=== PATIENT | female | born 1955 | race Caucasian/White ===

== ENCOUNTER 2018-08-06 09:22 | Inpatient (IN) | payer OTHER ==
--- OUTSIDE RECORDS SUMMARY | 2018-08-06 10:27 | XMS REPORT | Continuity of Care Document ---
:1955 External Reference #:[id number] Author Name Mann Covarrubias Care Team Providers Name Role Phone Shay Mohan MD Primary Care Physician Unavailable Payers Type Date Identification Numbers Payment Provider Subscriber Policy Number: [id number] Alex Multani Group Number: [id number] [address] PayID: [id number] [place] [address] Expires: 2013 Policy Number: [id number] Khalif Zhoumarybel Hall Randall PayID: [id number] [address] [address] [place] [address] Advance Directives Description No Information Available Problems Date Description Provider Status Onset: 08/10/2015 Obstructive sleep apnea syndrome Leslye Abdalla DNP, RN, Active [employer] Onset: 09/14/2016 Morbid obesity Roro Lowe MD Active Onset: 09/14/2016 Hypersomnia, unspecified Roro Lowe MD Active Onset: 12/26/2016 Traumatic rupture of collateral Shay Em M.D. Active ligament of left little finger at metacarpophalangeal and interphalangeal joint, initial encounter Onset: 04/17/2017 Nondisplaced fracture of proximal Shay Em M.D. Active phalanx of left middle finger, subsequent encounter for fracture with routine healing Onset: 07/13/2017 Tibialis tendinitis Shay Em M.D. Active Onset: 07/13/2017 Sciatica Shay Em M.D. Active Family History Date Family Member(s) Problem(s) Comments General back problems General Esophagus Cancer Father due to at age 86 () Mother due to alive age 85 healthy () Siblings 5 Social History Type Date Description Comments Sex Unknown Marital Status Lives With Occupation Disabled ETOH Use Denies alcohol use Tobacco Use Start: Unknown Patient has never smoked Smoking Status Reviewed: 07/09/18 Patient has never smoked Exercise Type/Frequency Exercises sporadically Allergies, Adverse Reactions, Alerts Date Description Reaction Status Severity Comments 11/12/2012 Demerol Active 11/12/2012 Fiorinal Active 11/12/2012 Erythromycin Active 11/18/2013 Bee Sting Active 11/18/2013 Aspirin Active 12/08/2013 Shellfish-derived Products Active 12/08/2013 Latex Active Medications Medication Date Status Form Strength Qnty SIG Indications Ordering Provider Orthotics 07/20/ Active Inserts 1Pair Dx: Shay 2016 Posterior Manav, tibial M.D. tendon dysfnx Support arch, control hindfoot motion Ibuprofen 09/13/ Active Tablets 800mg by mouth Unknown 2016 three times a day as needed Levothyroxine 03/17/ Active Tablets 100mcg -W- Unknown Sodium 2014 Oxycodone-Aceta 11/17/ Active Tablets 5-325mg 50tabs 1-2 tabs Garrett minophen 2013 by mouth Young, every 4 M.D. hours for pain Tramadol HCL / Active Tablets 50mg 50tabs four times Unknown 0000 a day as needed Prevacid / Active Capsules 30mg 30caps 1 by mouth Unknown 0000 DR every day Levothyroxine / Active Tablets 88mcg t-th-sat-s Unknown Sodium 0000 un Magnesium-Oxide 10/26/ Hx Tablets 400mg 1 by mouth Unknown 2015 - every day 2015 Bactrim DS 09/23/ Hx Tablets 800-160mg 14tabs 1 po bid Dirk 2012 - for 7 days Yeny, 11/17/ M.D. 2013 Percocet 09/18/ Hx Tablets 5-325mg 90tabs 1-2 tabs Dirk 2012 - po q4-6 Yeny, 11/17/ prn pain M.D. 2013 Medications Administered in Office Medication Date Status Form Strength Qnty SIG Indications Ordering Provider Depomedrol Administered Injection Faith H. 80MG 013 Queenie Multani Depomedrol Administered Injection Dirk Yeny, 80MG 013 M.D. Depomedrol Administered Injection Quoc Yeny, 80MG 013 M.D. Depomedrol Administered Injection Faith H. 80MG 012 Queenie Multani Hyaluron Or Administered Injection Immanuel Derivative,Or 012 Akilah Ceballosoviayden,For Intra-Articul ar Inj Per Dose Hyaluron Or Administered Injection Immanuel Derivative,Or 012 Akilah Ceballos thovisc,For Intra-Articul ar Inj Per Dose Hyaluron Or Administered Injection Immanuel Derivative,Or 012 Akilah Ceballos thovisc,For Intra-Articul ar Inj Per Dose Immunizations Description No Information Available Vital Signs Date Vital Result Comment 07/09/2018 8:50am Height 66 inches 5'6" Heart Rate 64 /min BP Systolic 126 mmHg BP Diastolic 82 mmHg Body Temperature 98.3 F Pain Level 0 06/11/2018 9:31am Heart Rate 72 /min BP Systolic 122 mmHg BP Diastolic 76 mmHg Respiratory Rate 16 /min Pain Level 5 05/14/2018 10:43am Heart Rate 72 /min BP Systolic 118 mmHg BP Diastolic 78 mmHg Respiratory Rate 12 /min Body Temperature 98.9 F Pain Level 5 03/28/2018 8:13am Height 66 inches 5'6" Weight 240.00 lb Heart Rate 64 /min BP Systolic Sitting 120 mmHg BP Diastolic Sitting 86 mmHg Respiratory Rate 16 /min Pain Level 6 BMI (Body Mass Index) 38.7 kg/m2 07/13/2017 1:20pm Height 66 inches 5'6" Weight 237.00 lb Heart Rate 76 /min BP Systolic Recheck 130 mmHg BP Diastolic Recheck 84 mmHg Respiratory Rate 16 /min Body Temperature 98.0 F BMI (Body Mass Index) 38.2 kg/m2 04/17/2017 1:17pm Height 66 inches 5'6" Weight 258.00 lb Heart Rate 76 /min BP Systolic Recheck 130 mmHg BP Diastolic Recheck 86 mmHg Respiratory Rate 16 /min Body Temperature 99.3 F BMI (Body Mass Index) 41.6 kg/m2 03/06/2017 3:57pm Height 66 inches 5'6" Weight 265.00 lb Heart Rate 88 /min BP Systolic Recheck 136 mmHg BP Diastolic Recheck 86 mmHg Respiratory Rate 16 /min Body Temperature 98.6 F BMI (Body Mass Index) 42.8 kg/m2 02/13/2017 3:49pm Height 65 inches 5'5" Weight 263.00 lb Heart Rate 80 /min BP Systolic Recheck 130 mmHg BP Diastolic Recheck 86 mmHg Respiratory Rate 16 /min Body Temperature 98.6 F BMI (Body Mass Index) 43.8 kg/m2 12/26/2016 1:09pm Height 66 inches 5'6" Weight 270.00 lb Heart Rate 76 /min BP Systolic Recheck 130 mmHg BP Diastolic Recheck 84 mmHg Respiratory Rate 16 /min Body Temperature 99.0 F BMI (Body Mass Index) 43.6 kg/m2 09/14/2016 10:03am Height 66 inches 5'6" Weight 270.00 lb Heart Rate 81 /min BP Systolic Sitting 129 mmHg BP Diastolic Sitting 80 mmHg Respiratory Rate 14 /min O2 % BldC Oximetry 93 % BMI (Body Mass Index) 43.6 kg/m2 02/17/2016 1:13pm Height 65 inches 5'5" Heart Rate 72 /min BP Systolic Sitting 120 mmHg BP Diastolic Sitting 78 mmHg Respiratory Rate 12 /min O2 % BldC Oximetry 96 % 10/28/2015 1:13pm Height 65 inches 5'5" Weight 267.00 lb Heart Rate 88 /min BP Systolic 128 mmHg BP Diastolic 88 mmHg Respiratory Rate 14 /min O2 % BldC Oximetry 98 % BMI (Body Mass Index) 44.4 kg/m2 08/10/2015 1:27pm Height 65 inches 5'5" Weight 267.00 lb Heart Rate 88 /min BP Systolic 142 mmHg BP Diastolic 86 mmHg Respiratory Rate 14 /min O2 % BldC Oximetry 97 % BMI (Body Mass Index) 44.4 kg/m2 05/26/2015 10:24am Heart Rate 85 /min BP Systolic Sitting 136 mmHg BP Diastolic Sitting 84 mmHg Respiratory Rate 20 /min O2 % BldC Oximetry 98 % 03/18/2015 1:51pm Height 66 inches 5'6" Weight 276.25 lb Heart Rate 88 /min BP Systolic 124 mmHg BP Diastolic 74 mmHg Respiratory Rate 14 /min O2 % BldC Oximetry 96 % BMI (Body Mass Index) 44.6 kg/m2 Neck Circumference in inches 14.5 Results Test Date Facility Test Result H/L Range Note Urinalysis 06/25/2013 [facility] Urine Color Yellow [address] [place] [address] [phone] Urine Appearance Clear Urine Specific Holly 1.023 1.010-1.030 Urine Esterase 2+ Abnormal Negative Urine Nitrate Negative Negative Urine Urobilinogen Negative E.U./dL Negative Urine Protein Negative mg/dL Negative Urine pH 6.0 5-9 Urine Blood Negative Negative Urine Ketones Negative mg/dL Negative Urine Bilirubin Negative Negative Urine Glucose Negative mg/dL Negative Urine Microscopic 06/25/2013 [facility] Urine WBC 1+ (<[address] /hpf) [place] [address] [phone] Urine RBC 1+ (<3 /hpf) None Seen Urine Epithelial Cells 3+ Squamous /hpf None Seen Bacteria Urine 1+ None Seen Urine Culture And 06/25/2013 [facility] Urine Culture (SEE NOTE ) 1 Sensitivities [address] [place] [address] [phone] CBC No Diff 06/25/2013 [facility] White Blood 8.2 10^3/uL 4.8 -[address] DR[address] Count .8 [place] [address] [phone] Red Blood Count 4.57 10^6/uL 4.0-5.4 Hemoglobin 13.2 g/dL 12.0-16.0 Hematocrit 40 % 35-47 Mean Corpuscular Volume 88 fL 80-97 Mean Corpuscular Hemoglobin 29 pg 27-31 Mean Corpuscular HGB Conc 33 g/dL 31-36 Red Cell Distribution Width 15 % 10.5-15 Platelet Count 346 10^3/uL 150-450 Mean Platelet Volume 8 um3 7.4-10.4 Type & Screen 06/25/2013 [facility] Patient [place] [address] [phone] Antibody Screen NEGATIVE Basic Metabolic Panel 06/25/2013 [facility] Sodium 136 mmol/L 133-145 [place] [address] [phone] Potassium 4.7 mmol/L 3.5-5.0 Chloride 100 mmol/L Low 101-111 Co2 Carbon Dioxide 28.0 mmol/L 22-32 Anion Gap 8.0 mmol/L 2-11 Glucose 94 mg/dL 70-100 Blood Urea Nitrogen 15 mg/dL 6-24 Creatinine 0.70 mg/dL 0.50-1.40 BUN/Creatinine Ratio 21.4 High 8-20 Calcium 9.4 mg/dL 8.1-9.9 Egfr Non- 86.6 >60 Egfr 111.3 >60 2 Laboratory test 06/25/2013 [facility] TSH (Thyroid 2.72 0.34- 5.60 [address] Stimulating miu/[place] [address] Horm) [phone] 1 RUN DATE: 06/27/13 [facility] LAB LIVE PAGE 1 RUN TIME: 1028 [address] [facility], [place], [place], [place] [address] Specimen Inquiry Name: CECY MULTANI : [address]: Quoc Saini MD Acct: [id number] Unit: [id number] AGE: 57 Location: [facility] Re06/25/13 SEX: F Status: REG REF SPEC: [id number] NURIS: 06/25/13-1230 [facility] DR: Quoc Saini MD REQ: [id number] RECD: 06/25/13 STATUS: LESLEE CONTI DR: Shay Mohan MD _ SOURCE: URINE SPDESC: ORDERED: Urine Culture Procedure Result Verified Site Urine Culture Final 06/27/13- 1028 ML Organism 1 STREP GROUP B [place] Count 25-50,000 (Moderate) CFU/ML Organism 2 NORMAL MAI [place] Count 10-25,000 (Moderate) CFU/ML Susceptibility testing of penicillins and other B-lactams approved by FDA for treatment of Streptococcus pyogenes (Group A Strep) and Streptococcus agalactiae (Group B Strep) is not necessary for clinical purposes and need not be done routinely, since as with vancomycin, resistant strains have not been recognized. (CLSI M660-D10;p.66) Positive isolates will be saved for one week. Please call the Microbiology Laboratory if further susceptibility testing is needed. END OF REPORT * ML=Testing performed at Main Lab DEPARTMENT OF PATHOLOGY, [address] [place] [address] Charles Mo M.D. Director [facility] Permit #[id number] 2 Because ethnic data is not always readily available, this report includes an eGFR for both -Americans and non- Americans. The National Kidney Disease Education Program (NKDEP) does not endorse the use of the MDRD equation for patients that are not between the ages of 18 and 70, are , have extremes of body size, muscle mass, or nutritional status, or are non- or non-. According to the National Kidney Foundation, irrespective of diagnosis, the stage of the disease is based on the level of kidney function: Stage Description GFR(mL/min/1.73 m(2)) 1 Kidney damage with normal or decreased GFR 90 2 Kidney damage with mild decrease in GFR 60-89 3 Moderate decrease in GFR 30-59 4 Severe decrease in GFR 15-29 5 Kidney failure <15 (or dialysis) 3 AA 07/08/13 Procedures Date Code Description Status 07/08/2015 36006 Polysomnography Sleep Staging 4+ Parameters W/Cpap Completed 04/07/2015 52384 Polysomnography Sleep Staging 4+ Parameters Completed 08/04/2013 51520 Xray Knee 3 Views Completed 08/04/2013 87927 Rad Exam; Knee, Ap&L Completed 07/08/2013 69095 TKR Total Knee Replacement Completed 07/08/2013 41698 TKR Total Knee Replacement Completed 06/25/2013 94392 EKG, Interpretation Only Completed 06/25/2013 89730 Rad Exam; Both Knees, Standing Ap Completed 06/25/2013 20930 Xray Knee 3 Views Completed 06/25/2013 56412 Rad Exam; Knee, Ap&L Completed 06/25/201365750 Inject/Drain Joint/Bursa Major W/O US Completed 03/17/201340452 Inject/Drain Joint/Bursa Major W/O US Completed 11/11/201212601 Inject/Drain Joint/Bursa Major W/O US Completed 11/11/2012 77152 Rad Exam; Knee, Ap&L Completed 11/11/2012 12459 Xray Knee 3 Views Completed 11/11/2012 00614 Rad Exam; Both Knees, Standing Ap Completed 10/01/2012 24409 TKR Total Knee Replacement Completed 10/01/2012 84148 TKR Total Knee Replacement Completed 09/18/2012 64855 EKG, Interpretation Only Completed 07/08/2012 51742 Xray Knee 3 Views Completed 07/08/2012 29191 Xray Knee 3 Views Completed 07/08/2012 33017 Rad Exam; Knee, Ap&L Completed 07/08/2012 32870 Rad Exam; Knee, Ap&L Completed 07/08/2012 Inject/Drain Joint/Bursa Major W/O US Completed 05/09/2012 Inject/Drain Joint/Bursa Major W/O US Completed 05/02/2012 Inject/Drain Joint/Bursa Major W/O US Completed 04/25/2012 Inject/Drain Joint/Bursa Major W/O US Completed Encounters Type Date Location Provider Dx Diagnosis Office Visit 06/11/2018 Orthopedic Services Esther Abad Achilles 9:30a Of [place].Yayo [place] tendinitis, left leg Office Visit 05/14/2018 [facility] Services Esther Abad Achilles 10:15a Of Isabel.Yayo [place] tendinitis, left leg M19.072 Primary osteoarthritis, left ankle and foot Office Visit 03/28/2018 8:00a Orthopedic Immanuel Santana Achilles Services Of Akilah Ceballos tendinitis, left C.M.A. leg M19.072 Primary osteoarthritis, left ankle and foot Office Visit 07/13/2017 1:30p Orthopedic Shay Em, M54.41 Lumbago with Services Of Addy [place] sciatica, right AT [place] side M76.821 Posterior tibial tendinitis, right leg Office Visit 04/17/2017 1:15p Orthopedic Shay Em, S63.417D Traum rupt of Services Of Addy wolf ligmt AT [place] of l lit fngr at MCP/IP jt, subs S62.643D Nondisp fx of prox phalanx of l mid fngr, 7thD Office Visit 03/06/2017 3:45p Orthopedic Shay Em S63.417D Traum rupt of Services Of Addy [place] collat ligmt AT [place] of l lit fngr at MCP/IP jt, subs S62.643D Nondisp fx of prox phalanx of l mid fngr, 7thD Office Visit 02/13/2017 Edu [place]3.417A Traum rupt of 3:30p Services Of Addy Em M.D. collat ligmt of l AT [place] lit fngr at MCP/IP jt, init Office Visit 12/26/2016 Orthopedic Shay S63.417A Traum rupt of 1:00p Services Of Addy Em M.D. collat ligmt of l AT [place] lit fngr at MCP/IP jt, init Office Visit 09/14/2016 Pulmonology & Roro G47.33 Obstructive sleep 10:00a Sleep Services AT MD Mynor apnea (adult) [place] (pediatric) E66.01 Morbid (severe) obesity due to excess calories G47.10 Hypersomnia, unspecified Office Visit 02/17/2016 Pulmonology & Nic Mckeon G47.33 Obstructive sleep 1:00p Sleep Services AT MAdriano apnea (adult) [place] (pediatric) Office Visit 10/28/2015 Pulmonology And Nic Mckeon G47.33 Obstructive sleep 1:00p Sleep Services Of Akilah apnea (adult) [facility] (pediatric) Office Visit 08/10/2015 Pulmonology And Leslye G47.33 Obstructive sleep 1:30p Sleep Services Of WADE Abdalla, RN, apnea (adult) [facility] (pediatric) G47.10 Hypersomnia, unspecified E66.01 Morbid (severe) obesity due to excess calories Office Visit 05/26/2015 10:15a Pulmonology And Nikhil Johnson G47.33 Obstructive sleep Sleep Services Of [place]ilah apnea (adult) [facility] (pediatric) R06.83 Snoring Office Visit 03/18/2015 1:45p Pulmonology And Nikhil Johnson, 327.23 Obstructive Sleep Sleep Services Of MAdriano Apnea Adult & [facility] Pediatric 780.54 Hypersomnia Unspecified Office Visit 12/08/2013 Orthopedic Garrett Torres, 840.4 Sprains & Strains 3:00p Services Of [facility] Akilah Rotator Cuff AT [place] (Capsule) Office Visit 11/17/2013 Edu Torres, 840.4 Sprains & Strains 1:45p Services Of [facility] Akilah Rotator Cuff AT [place] (Capsule) Office Visit 07/14/2013 [facility] Shaheen Harden v66.0 Convalescence 1:11p MD Dustin Chan M.D. Following Surgery Office Visit 06/02/2013 Orthopedic Garrett Torres, 840.4 Sprains & Strains 10:45a Services Of [facility] Akilah Rotator Cuff AT [place] (Capsule) Office Visit 05/22/2013 Orthopedic Immanuel 840.4 Sprains & Strains 11:15a Services Of Addy Ceballos M.D. Rotator Cuff AT [place] (Capsule) Office Visit 04/24/2013 Orthopedic Immanuel 840.4 Sprains & Strains 11:30a Services Of Addy Ceballos M.D. Rotator Cuff AT [place] (Capsule) Office Visit 03/17/2013 Orthopedic Quoc Saini 715.16 Osteoarthrosis 1:00p Services Of [place] Localized Prim Lower C.M.A. Leg 719.46 Pain Joint Lower Leg 715.96 Osteoarthrosis Unspec Genlzd Or Localized Lower Leg V54.81 Aftercare Following Joint Replacement V43.64 Hip Replacement By Other Means Office Visit 11/11/2012 1:30p Orthopedic Tripp Galicia.96 Osteoarthrosis Services Of Akilah Unspec Genlzd Or C.M.A. Localized Lower Leg 715.16 Osteoarthrosis Localized Prim Lower Leg Office Visit 07/24/2012 Orthopedic Quoc Saini 715.96 Osteoarthrosis 10:45a Services Of [place] Unspec Genlzd Or C.M.A. Localized Lower Leg Office Visit 07/08/2012 Orthopedic Joseluis Hamilton 715.96 Osteoarthrosis 10:00a Services Of Lila Multani Genlzd Or C.M.A. R.P.A.-C Localized Lower Leg Office Visit 06/20/2012 Orthopedic Immanuel Ceballos 715.96 Osteoarthrosis 3:45p Services Of Addy [place] Unspec Genlzd Or AT [place] Localized Lower Leg Office Visit 05/09/2012 Orthopedic Immanuel Ceballos 715.96 Osteoarthrosis 8:00a Services Of Addy [place] Unspec Genlzd Or AT [place] Localized Lower Leg Office Visit 05/02/2012 Orthopedic Immanuel Ceballos 71Viet.96 Osteoarthrosis 9:30a Services Of Addy [place] Unspec Genlzd Or AT [place] Localized Lower Leg Office Visit 04/25/2012 Edu Ceballos 715.96 Osteoarthrosis 8:45a Services Of Addy [place] Unspec Genlzd Or AT [place] Localized Lower Leg Office Visit 03/14/2012 Orthopedic Immanuel Ceballos 715.96 Osteoarthrosis 1:45p Services Of Addy [place] Unspec [facility] Or AT [facility] Lower Leg Plan of Treatment Future Appointment(s):08/13/2018 11:15 am - Immanuel Ceballos M.D. at Orthopedic Services Of [facility]
[2018-08-06 10:31] LABS: Hematocrit 38 % (35-47); Hemoglobin 12.5 g/dl (12.0-16.0); Mean Corpuscular HGB Conc 33 g/dl (31-36); Mean Corpuscular Hemoglobin 30 pg (27-31); Mean Corpuscular Volume 90 fL (80-97); Mean Platelet Volume 7.3 fL (7.4-10.4); Platelet Count 342 10^3/ul (150-450); Red Blood Count 4.19 10^6/ul (4.00-5.40); Red Cell Distribution Width 15 % (10.5-15); White Blood Count 10.4 10^3/ul (3.5-10.8)
[2018-08-06] MEDS ORDERED: Ondansetron INJ* 2 MG/ML VIAL IV ONE (10:36)
[2018-08-06] MEDS ORDERED: Docusate CAP* 100 MG PO ONE (10:36)
[2018-08-06] MEDS ORDERED: Morphine VIAL* 4 MG/ML VIAL (1 ml vial) IV ONE (10:36)
[2018-08-06 10:37] LABS: Activated Partial Thrombo Time 29.9 seconds (26.0-36.3); INR 0.95 (0.77-1.02)
[2018-08-06 10:49] LABS: Albumin 3.7 g/dL (3.2-5.2); Albumin/Globulin Ratio 1.2 (1-3); BUN/Creatinine Ratio 21.4 (8-20); Calcium 9.4 mg/dL (8.6-10.3); EGFR Non-African American 84.8 (>60); Total Bilirubin 0.7 mg/dL (0.2-1.0); Total Protein 6.7 g/dL (6.4-8.9)
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
[2018-08-06] MEDS ORDERED: Iohexol 300* (CONTRAST) 10 ML SDV IV ONE (11:57)
[2018-08-06 13:33] LABS: Urine Appearance Clear; Urine Bacteria Absent (Absent); Urine Bilirubin Negative (Negative); Urine Blood 1+ (Negative); Urine Color Amber; Urine Glucose Negative (Negative); Urine Ketones Negative (Negative); Urine Nitrite Positive (Negative); Urine Protein Negative (Negative); Urine Red Blood Cell Trace(0-2/hpf) (Absent); Urine Specific Gravity 1.005 (1.010-1.030); Urine Urobilinogen Negative (Negative); Urine White Blood Cell Trace(0-5/hpf) (Absent)
[2018-08-06] MEDS ORDERED: NS 0.9% 1000 ML* 1,000 ML IV ONE (13:52)
[2018-08-06] MEDS ORDERED: Ciprofloxacin 400MG IVPREMIX(* 400 MG/200 ML BAG IVPB ONE (13:52)
[2018-08-06] MEDS ORDERED: metroNIDAZOLE IV 500 MG/100ML* 500 MG/100 ML BAG IVPB ONE (13:53)
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
[2018-08-06 15:43] LABS: C Reactive Protein 40.18 mg/L (<8.01)
[2018-08-06] MEDS: NS 0.9% 1000 ML* 1,000 ML IV SCH (18:34)
[2018-08-06] MEDS: Morphine VIAL* 4 MG/ML VIAL (1 ml vial) IV PRN (18:42)
[2018-08-06] MEDS: Ondansetron INJ* 2 MG/ML VIAL IV PRN (18:48)
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
[2018-08-06] MEDS: metroNIDAZOLE IV 500 MG/100ML* 500 MG/100 ML BAG IVPB SCH (20:53)
[2018-08-06] MEDS: Omeprazole CAP (NF) 20 MG CAP.DR PO SCH (20:53)
[2018-08-06] MEDS: Cyclobenzaprine TAB* 10 MG PO SCH (20:53)
[2018-08-06] MEDS: oxyCODONE SR TAB(*) 10 MG TAB.SR PO PRN (23:12)
[2018-08-06] MEDS: Acetaminophen TAB* 325 MG PO PRN (23:35)
[2018-08-07] MEDS: Ciprofloxacin 400MG IVPREMIX(* 400 MG/200 ML BAG IVPB SCH ×2 (01:52→13:01)
[2018-08-07] MEDS: Levothyroxine TAB* 100 MCG TAB PO SCH (05:39)
[2018-08-07] MEDS: oxyCODONE TAB* 5 MG TAB PO PRN (05:52)
[2018-08-07] MEDS: NS 0.9% 1000 ML* 1,000 ML IV SCH ×2 (06:43→22:16)
[2018-08-07] MEDS: Omeprazole CAP (NF) 20 MG CAP.DR PO SCH ×2 (08:08→22:01)
[2018-08-07] MEDS: Cyclobenzaprine TAB* 10 MG PO SCH ×3 (08:08→22:01)
[2018-08-07] MEDS: metroNIDAZOLE IV 500 MG/100ML* 500 MG/100 ML BAG IVPB SCH ×2 (08:09→22:01)
[2018-08-07] MEDS ORDERED: LEVOTHYROXINE SODIUM 88 MCG PO SCH (09:00)
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
[2018-08-07] MEDS: Acetaminophen TAB* 325 MG PO PRN (12:22)
[2018-08-07] MEDS ORDERED: Midazolam* 1 MG/ML 10 ML VIAL (10 MG) ONE (16:14)
[2018-08-07] MEDS ORDERED: fentaNYL* 50 MCG/ML 2 ML VIAL (100 MCG VIAL) ONE (16:14)
--- NOTE | 2018-08-07 19:04 | PRO ---
CC: Fatimah Hoskins DO; Shay Mohan MD * DATE OF PROCEDURE: 08/07/18 - ROOM #413 PROCEDURE: Flex sig with biopsy. INPATIENT PROVIDER: Fatimah Hoskins DO PRIMARY CARE PHYSICIAN: Shay Mohan MD INDICATIONS: Patient with severe constipation related to narcotics for acute pain, which culminated in manual disimpaction on day prior to admission. She then developed rectal bleeding and abdominal pain. CT demonstrated left-sided colitis. Blood counts have been stable. The patient continues to have some rectal bleeding today. MEDICATIONS GIVEN: 1. Midazolam 4 mg IV. 2. Fentanyl 100 mcg IV. DESCRIPTION OF PROCEDURE: Full disclosure of risks was reviewed with the patient as detailed on the consent form. The patient was placed in the left lateral decubitus position and monitored with continuous pulse oximetry, capnography, interval blood pressure monitoring, and direct observation. After anorectal examination was performed, the pediatric colonoscope was inserted into the rectum and advanced under direct vision to around 30 cm. Quality of the prep was fair. Careful inspection was made as the colonoscope was withdrawn. A retroflexed view of the rectum was performed. Findings and interventions are described below. FINDINGS: Anorectal exam notable for non-thrombosed external hemorrhoids. The scope was slowly advanced through the rectum, which was normal in appearance. At approximately 25 cm, there was evidence of purplish erythematous mucosa with ulcerations and mucosal friability. The scope was advanced to around 30 cm, where these findings were more significant. The scope was not advanced any further. Biopsies were obtained from this area. The scope was then slowly withdrawn. The rectal mucosa appeared normal. Retroflexion in the rectum revealed irritated and erythematous internal hemorrhoids. No active bleeding from the hemorrhoid was noted. No ulceration in this area noted. The scope was then withdrawn from the patient. The patient tolerated the procedure well and was recovered in the GI recovery area. IMPRESSION: 1. Findings appeared endoscopically consistent with ischemic colitis involving sigmoid colon of at least moderate severity. I suspect that this is most likely a result of the patient's episode of severe constipation and impaction. Constipation has been felt to potentially increase intracolonic pressure and reduce blood flow and therefore can precipitate ischemic colitis in some patients. 2. Internal hemorrhoids, non-bleeding. FOLLOWUP: 1. Await pathology. 2. Can advance diet slowly. 3. Recommend antibiotics for 5 to 10 days. 4. Continue supportive care. 5. We will arrange for outpatient GI clinic follow up after acute episode is resolved. Thank you very much for this consult. [id number]/[facility] #: [id number] JOSÉ
[2018-08-07] MEDS: Ondansetron INJ* 2 MG/ML VIAL IV PRN (22:01)
[2018-08-07] MEDS: Morphine VIAL* 4 MG/ML VIAL (1 ml vial) IV PRN (22:02)
[2018-08-08] MEDS: Ciprofloxacin 400MG IVPREMIX(* 400 MG/200 ML BAG IVPB SCH ×2 (02:10→13:12)
[2018-08-08] MEDS: oxyCODONE TAB* 5 MG TAB PO PRN ×2 (02:53→15:34)
[2018-08-08] MEDS ORDERED: Levothyroxine TAB* 88 MCG TAB PO SCH (06:00)
[2018-08-08] MEDS: metroNIDAZOLE IV 500 MG/100ML* 500 MG/100 ML BAG IVPB SCH ×2 (08:56→21:25)
[2018-08-08] MEDS: NS 0.9% 1000 ML* 1,000 ML IV SCH (08:59)
[2018-08-08] MEDS: Cyclobenzaprine TAB* 10 MG PO SCH ×3 (09:01→21:26)
[2018-08-08] MEDS: Omeprazole CAP (NF) 20 MG CAP.DR PO SCH ×2 (09:01→21:25)
[2018-08-08] MEDS: oxyCODONE SR TAB(*) 10 MG TAB.SR PO PRN ×2 (11:01→21:25)
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
[2018-08-08] MEDS ORDERED: Polyethylene Glycol 3350* 17 GM PACKET PO PRN (16:35)
[2018-08-08] MEDS: Ondansetron INJ* 2 MG/ML VIAL IV PRN (21:27)
[2018-08-09] MEDS: Ciprofloxacin 400MG IVPREMIX(* 400 MG/200 ML BAG IVPB SCH (02:25)
[2018-08-09] MEDS: Levothyroxine TAB* 100 MCG TAB PO SCH (05:22)
[2018-08-09] MEDS: metroNIDAZOLE IV 500 MG/100ML* 500 MG/100 ML BAG IVPB SCH (08:49)
[2018-08-09] MEDS: Cyclobenzaprine TAB* 10 MG PO SCH (08:51)
[2018-08-09] MEDS: Omeprazole CAP (NF) 20 MG CAP.DR PO SCH (08:52)
[2018-08-09] MEDS: oxyCODONE SR TAB(*) 10 MG TAB.SR PO PRN (11:56)
[2018-08-09 11:57] VITALS: BP 146/86
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
== END 2018-08-09 13:40 | disposition home or self-care (01) | DRG 246 ==
LOC: ED 09:22 → MED 16:18 → OBSVTOIN 08-07 16:00
PROVIDERS: ADMIT Hospitalist; ATTEND Internal Medicine
PROC: 0DDN8ZX Extraction of Sigmoid Colon, Via Natural or Artificial Opening Endoscopic, Diagnostic (ICD-10-PCS; principal; 2018-08-07)
DX: K55.9 Vascular disorder of intestine, unspecified (principal); J90 Pleural effusion, not elsewhere classified; Z68.41 Body mass index [BMI] 40.0-44.9, adult; K59.03 Drug induced constipation; T40.605A Adverse effect of unspecified narcotics, initial encounter; E03.9 Hypothyroidism, unspecified; K44.9 Diaphragmatic hernia without obstruction or gangrene; M79.7 Fibromyalgia; E66.9 Obesity, unspecified; R94.5 Abnormal results of liver function studies; K21.9 Gastro-esophageal reflux disease without esophagitis; M19.90 Unspecified osteoarthritis, unspecified site; Z96.653 Presence of artificial knee joint, bilateral; Y92.9 Unspecified place or not applicable; S22.41XD Multiple fractures of ribs, right side, subsequent encounter for fracture with routine healing; V49.60XD Unspecified car occupant injured in collision with unspecified motor vehicles in traffic accident, subsequent encounter; Z79.891 Long term (current) use of opiate analgesic; Z79.899 Other long term (current) drug therapy; Z88.8 Allergy status to other drugs, medicaments and biological substances; Z88.1 Allergy status to other antibiotic agents; Z91.030 Bee allergy status; Z88.5 Allergy status to narcotic agent; Z91.013 Allergy to seafood; K64.8 Other hemorrhoids
CPT/HCPCS: 36415; 71046; 74177; 80053; 81003; 81015; 83605; 85027; 85610; 85730; 86140; 87086; 87493; 88305; 99156; 99157; 99284; A9270-GY; J0744; J2250; J2270; J2405; J3010; J3490; Q9967

== ENCOUNTER 2018-10-25 20:53 | Emergency (ER) | payer OTHER ==
--- NOTE | 2018-10-25 22:35 | UC ---
Lower Extremity/Ankle HPI - HPI Summary HPI Summary: 63-year-old female presents with complaints pain to the back of her left heel. States she was walking outside earlier this evening, tripped over a piece of wood, following forward and landing with full force on her left foot. States she felt something pop in the back of her heel and then had severe pain. States she has been unable to bear weight since the injury and is unable to flex or extend the left foot. States she has been under the care of Dr. Ceballos for a left heel spur and Achilles tendinopathy and has received 2 steroid injections the most recent in September 2018. Denies numbness or tingling in the foot or toes. - History of Current Complaint Chief Complaint: EDExtremityLower Stated Complaint: "FALL LEFT FOOT PAIN" Time Seen by Provider: 10/25/18 22:23 Hx Obtained From: Patient Pain Intensity: 8 - Allergies/Home Medications Allergies/Adverse Reactions: Allergies Allergy/AdvReac Type Severity Reaction Status Date / Time adhesive Allergy Blisters Verified 08/06/18 16:27 Adhesive Tape Allergy Blisters Verified 08/06/18 14:56 aspirin Allergy See Comment Verified 08/06/18 16:27 butalbital Allergy Hallucinati Verified 08/06/18 16:27 ons erythromycin base Allergy GI Upset Verified 08/06/18 16:27 latex Allergy Swelling Verified 08/06/18 16:27 meperidine [From Demerol] Allergy Nausea And Verified 08/06/18 16:27 Vomiting povidone-iodine Allergy See Comment Verified 08/06/18 16:27 [From Betadine] soap [From Betadine] Allergy See Comment Verified 08/06/18 16:27 SEAFOOOD Allergy ANAPHYLACTI Uncoded 07/08/13 06:57 C SEASONAL Allergy Shortness Uncoded 07/08/13 06:57 HAYFEVER/ENVIRONMENTAL of Breath WILD PARSNIPS Allergy SEVERE RASH Uncoded 07/08/13 06:57 PMH/Surg Hx/FS Hx/Imm Hx Previously Healthy: Yes Endocrine History: Hypothyroidism GI/ History: Gastroesophageal Reflux - Surgical History Surgical History: Yes Surgery Procedure, Year, and Place: ; hysterectomy; foot left; hand rt ; bilat total knee; abdominal; wrist ganglion;. rt toe; rt thumb - Family History Known Family History: Positive: Non-Contributory - Social History Occupation: Works From/At Home Lives: With Family Alcohol Use: Rare Substance Use Type: None Smoking Status (MU): Never Smoked Tobacco - Immunization History Most Recent Influenza Vaccination: DOES NOT TAKE Most Recent Tetanus Shot: UNKNOWN Most Recent Pneumonia Vaccination: NONE Review of Systems All Other Systems Reviewed And Are Negative: Yes Constitutional: Positive: Negative Skin: Positive: Bruising Respiratory: Positive: Negative Cardiovascular: Positive: Negative Gastrointestinal: Positive: Negative Genitourinary: Positive: Negative Musculoskeletal: Positive: Other: - See HPI Neurological: Positive: Negative Physical Exam - Summary Physical Exam Summary: GENERAL APPEARANCE: Alert and cooperative obese adult female who appears to be in no acute distress. CARDIAC: Normal S1 and S2. No S3, S4 or murmurs. Rhythm is regular. There is no peripheral edema, cyanosis or pallor. Extremities are warm and well perfused. Capillary refill is less than 2 seconds. Peripheral pulses intact. LUNGS: Clear to auscultation without rales, rhonchi, wheezing or diminished breath sounds. ABDOMEN: Positive bowel sounds. Soft, nondistended, nontender. No guarding or rebound. No masses or hepatosplenomegally. MUSKULOSKELETAL: Normal muscular development. EXTREMITIES: Tenderness over the left Achilles tendon with hematoma approximately 4 cm above the insertion point. Patient is unable to dorsiflex or plantarflex the foot. Negative squeeze test. Circulation and sensation were intact. SKIN: Skin normal color, texture and turgor with no lesions or eruptions. Triage Information Reviewed: Yes Vital Signs: Initial Vital Signs Temp 99.4 F 10/25/18 20:57 Pulse 73 10/25/18 20:57 Resp 16 10/25/18 20:57 BP 114/79 10/25/18 20:57 Pulse Ox 99 10/25/18 20:57 Vital Signs Reviewed: Yes Diagnostics - Radiology No standard instances Radiology Interpretation Completed By: ED Physician - Negative for fracture. Lower Extremity Course/Dx - Course Course Of Treatment: 63-year-old female presents with complaints pain to the back of her left heel. States she was walking outside earlier this evening, tripped over a piece of wood, following forward and landing with full force on her left foot. States she felt something pop in the back of her heel and then had severe pain. States she has been unable to bear weight since the injury and is unable to flex or extend the left foot. States she has been under the care of Dr. Ceballos for a left heel spur and Achilles tendinopathy and has received 2 steroid injections the most recent in September 2018. Denies numbness or tingling in the foot or toes. Afebrile. Vital signs stable. Exam is remarkable for tenderness over the left Achilles tendon with hematoma approximately 4 cm above the insertion point, patient is unable to dorsiflex or plantarflex the foot, and she has a negative squeeze test. Circulation and sensation were intact. X- ray of the left foot shows no acute fracture. Clinically the patient appears to have a rupture of the Achilles tendon. She was medicated with naproxen 500 mg 1 tab by mouth, hydrocodone-acetaminophen 5 mg/325 mg 1 tab by mouth for pain. She is given a dose of ondansetron 4 mg by mouth she has history of nausea and vomiting with narcotic medications. She was placed in a posterior short leg splint and placed in plantar flexion. She was provided crutches and instructed to remain nonweightbearing until she follows up with orthopedic surgery. She was given prescriptions for naproxen 375 mg twice a day 5-7 days then PRN for pain, she is given a seven-day supply of hydrocodone-acetaminophen 5 mg/325 mg 1 tab every 8 hours as needed for severe pain, as well as ondansetron 4 mg by mouth every 8 hours as needed for nausea and vomiting. She is to call Sunday to schedule appointment with Dr. Ceballos for follow- up. Anticipatory guidance and warning symptoms were reviewed with the patient. Verbalizes understanding and agrees with plan of care. - Differential Dx/Diagnosis Differential Diagnosis/HQI/PQRI: Fracture (Closed), Sprain, Tendonitis, Tenosynovitis Provider Diagnosis: Rupture of left Achilles tendon Discharge - Sign-Out/Discharge Documenting (check all that apply): Patient Departure Patient Received Moderate/Deep Sedation with Procedure: No - Discharge Plan Condition: Stable Disposition: HOME Prescriptions: Hydrocodone/Acetaminophen [Hydrocodone/Acetaminophen 5-325 mg] 1 tab PO Q8HR PRN #21 tab MDD 3 PRN Reason: Pain Naproxen [Naproxen 375 mg tab] 375 mg PO Q12HR #30 tablet Ondansetron ODT TAB* [Zofran 4 MG Odt TAB*] 4 mg PO Q8H PRN #9 tab.odt PRN Reason: Nausea/Vomiting Patient Education Materials: Crutch Instructions (ED), Achilles Tendon Rupture (ED), Splint Care (ED) Referrals: Shay Mohan MD [Primary Care Provider] - Immanuel Ceballos MD [Medical Doctor] - 3 Days Additional Instructions: The x-ray performed in the emergency room tonight showed no fracture. The x- ray will be reviewed by the radiologist in the morning and contact you if they see anything that changes the plan of care. Based on your exam is likely have a rupture of your Achilles tendon. Wear the splint that was applied in the emergency room at all times. Rest the leg. He should remain nonweightbearing until instructed otherwise by orthopedic surgery. Use the crutches that were provided to you. Apply ice to the affected area for 15-20 minutes at least 4 times a day to help reduce any swelling. Keep the leg elevated while sitting to help reduce any swelling. Take naproxen 375 mg 1 tablet every 12 hours with food for the next 5-7 days and may take every 12 hours as needed for pain. Use hydrocodone-acetaminophen 5 mg/325 mg 1 tablet every 8 hours as needed for severe pain. Use ondansetron 4 mg 1 tablet every 8 hours as needed for nausea or vomiting. Call Dr. Ceballos's office first thing Sunday to schedule an appointment as soon as possible. Return to the emergency room if you have severe pain that is not managed with your pain medication, the foot or toes become blue or pale, he developed numbness or tingling, or any worsening of symptoms. - Billing Disposition and Condition Condition: STABLE Disposition: Home
[2018-10-25] MEDS ORDERED: HYDROcodone/ACETAMIN 5-325 MG* 1 TAB PO ONE (22:41)
[2018-10-25] MEDS ORDERED: Naproxen TAB* 250 MG PO ONE (22:41)
[2018-10-25] MEDS ORDERED: Ondansetron ODT TAB* 4 MG PO ONE (22:41)
[2018-10-26 00:04] VITALS: BP 108/73
== END 2018-10-26 | disposition home or self-care (01) ==
LOC: ED 20:53
DX: S86.012A Strain of left Achilles tendon, initial encounter (principal); W19.XXXA Unspecified fall, initial encounter; Y92.9 Unspecified place or not applicable; Z88.6 Allergy status to analgesic agent
CPT/HCPCS: 99283; A9270-GY

== ENCOUNTER 2018-11-04 11:20 | Observation (INO) | payer OTHER ==
[~2018-11-04 11:20] MED LIST: Buffered Lidocaine 1% SYRIN* 1 ML/SYRINGE INTRADERM ONE; Famotidine IV* 10 MG/ML 2 ML (20 mg) IV ONE; Lactated Ringers 1000 ML Bag* 1,000 ML IV SCH
[2018-11-04] MEDS ORDERED: ceFAZolin 1 GM in Dextrose (*) 1 GM/50 ML BAG IVPB ONE (12:10)
[2018-11-04] MEDS ORDERED: Famotidine IV* 10 MG/ML 2 ML (20 mg) ONE (12:11)
[2018-11-04] MEDS ORDERED: ceFAZolin 2 GM in NS PREMIX(*) 2 GM/100 ML BAG IVPB ONE (12:11)
[2018-11-04] MEDS ORDERED: Buffered Lidocaine 1% SYRIN* 1 ML/SYRINGE INTRADERM ONE (12:11)
[2018-11-04] MEDS ORDERED: fentaNYL* 50 MCG/ML 2 ML VIAL (100 MCG VIAL) ONE ×3 (12:43→16:19)
[2018-11-04] MEDS ORDERED: Ketorolac INJ* 30 MG/ML 1 ML VIAL ONE (12:43)
[2018-11-04] MEDS ORDERED: Midazolam* 1 MG/ML 5 ML VIAL (5 MG) ONE (12:43)
[2018-11-04] MEDS ORDERED: Ondansetron INJ* 2 MG/ML VIAL ONE ×2 (12:43→16:40)
[2018-11-04] MEDS ORDERED: Lidocaine 2% PF * 5 ML VIAL ONE (12:43)
[2018-11-04] MEDS ORDERED: Propofol* 10 MG/ML 20 ML BTL ONE (12:43)
[2018-11-04] MEDS ORDERED: Dexamethasone IV* 4 MG/ML 1 ML (4 MG) ONE (12:43)
[2018-11-04] MEDS ORDERED: Bupivacaine 0.5%* 50 ML VIAL ONE (14:11)
[2018-11-04] MEDS ORDERED: Succinylcholine* 20 MG/ML 10 ML VIAL ONE (14:13)
[2018-11-04] MEDS ORDERED: Ondansetron INJ* 2 MG/ML VIAL IV PRN ×2 (14:46→16:04)
[2018-11-04] MEDS ORDERED: Naloxone* 0.4 MG/ML 1 ML VIAL IV PRN (14:46)
[2018-11-04] MEDS: fentaNYL* 50 MCG/ML 2 ML VIAL (100 MCG VIAL) IV PRN ×3 (15:44→16:21)
[2018-11-04] MEDS ORDERED: oxyCODONE TAB* 5 MG TAB PO PRN (16:04)
[2018-11-04] MEDS ORDERED: traZODone TAB* 50 MG TAB PO PRN (16:04)
[2018-11-04] MEDS ORDERED: Morphine INJ* 2 MG/ML 1 ML SYRINGE (TWO MG - NEW SYRINGE VERSION) IV PRN (16:04)
[2018-11-04] MEDS ORDERED: Magnesium Hydroxide LIQ* 30 ML UDC PO PRN (16:04)
[2018-11-04] MEDS ORDERED: oxyCODONE TAB* 5 MG TAB ONE (16:40)
[2018-11-04] MEDS: oxyCODONE TAB* 5 MG TAB PO PRN ×2 (16:42→22:44)
[2018-11-04] MEDS ORDERED: Lactated Ringers 1000 ML Bag* 1,000 ML IV SCH (17:00)
[2018-11-04] MEDS: Acetaminophen TAB* 325 MG PO SCH (18:34)
[2018-11-04] MEDS: Enoxaparin(*) 40 MG/0.4 ML SYR SUBCUT SCH ×2 (18:40→21:03)
[2018-11-04] MEDS: Magnesium Hydroxide LIQ* 30 ML UDC PO SCH (20:45)
[2018-11-04] MEDS ORDERED: LANSOPRAZOLE 30 MG PO SCH (21:00)
[2018-11-04] MEDS: Docusate CAP* 100 MG PO SCH (21:04)
[2018-11-04] MEDS: Naproxen TAB* 375 MG PO SCH (21:04)
--- NOTE | 2018-11-04 21:47 | OP ---
DATE OF OPERATION: 11/04/18 - ROOM #333 DATE OF : 57 ATTENDING SURGEON: Immanuel Ceballos MD ASSISTED BY: Kiera Finch PA-C PRE-OP DIAGNOSIS: Degenerative tear, left Achilles, insertional. POST-OP DIAGNOSIS: Degenerative tear, left Achilles, insertional. OPERATIVE PROCEDURE: Repair left Achilles with V-Y lengthening. DESCRIPTION OF PROCEDURE: The patient was taken to the operating room, prone positioning used and the thigh tourniquet inflated. We opened up a 12 cm longitudinal incision paramedial to the Achilles. Full thickness flap was raised off of the back of the Achilles and we located the tear, which was just a centimeter or 2 above the insertion point, so a little bit of the stump was left at the back of the calcaneus. We used a micro sagittal saw to remove the stump and the hypertrophic spurring area and the degenerative bursa. The Achilles was then short, so we went proximally and created a V-Y release, approximately 6 cm limbs of the V. We were able to achieve about 3 cm lengthening by pulling on this area. We then used the SpeedBridge to reattach the Achilles to the fresh cut cancellous bed. We also augmented the SpeedBridge attachment with the free proximal sutures weaving them proximally and then making a knot 3 to 4 cm more proximal. We irrigated thoroughly, closing with 3-0 Monocryl for the subcu and 2-0 Prolene for the skin, and a compression dressing was applied in neutral position. [id number]/[facility] #: [id number] [facility] MEDICAL CENTERElizabeth
[2018-11-04] MEDS: ceFAZolin 1 GM ADVAN(*) 1 GM in NS 0.9% 50 ML* 50 ML IVPB SCH (22:45)
[2018-11-05] MEDS: Acetaminophen TAB* 325 MG PO SCH ×3 (02:18→16:39)
[2018-11-05 05:51] LABS: Mean Platelet Volume 7.9 fL (7.4-10.4); Platelet Count 256 10^3/uL (150-450)
[2018-11-05] MEDS: ceFAZolin 1 GM ADVAN(*) 1 GM in NS 0.9% 50 ML* 50 ML IVPB SCH ×2 (06:04→14:00)
[2018-11-05] MEDS: Levothyroxine TAB* 88 MCG TAB PO SCH (06:04)
[2018-11-05 06:11] LABS: BUN/Creatinine Ratio 33.3 (8-20); Calcium 8.5 mg/dL (8.6-10.3); EGFR African American 115.9 (>60); EGFR Non-African American 95.8 (>60); Potassium 3.9 mmol/L (3.5-5.0)
[2018-11-05] MEDS: Docusate CAP* 100 MG PO SCH ×2 (08:02→20:26)
[2018-11-05] MEDS: oxyCODONE TAB* 5 MG TAB PO PRN ×2 (08:02→21:43)
[2018-11-05] MEDS: Magnesium Hydroxide LIQ* 30 ML UDC PO SCH ×2 (08:02→20:27)
[2018-11-05] MEDS: Ondansetron ODT TAB* 4 MG PO PRN ×2 (08:02→20:51)
[2018-11-05] MEDS: Pantoprazole TAB * 40 MG TAB PO SCH ×2 (08:08→20:27)
[2018-11-05] MEDS: Naproxen TAB* 375 MG PO SCH ×2 (08:08→20:51)
--- NOTE | 2018-11-05 08:44 | PN ---
Progress Note - Progress Note Date of Service: 11/05/18 SOAP: Subjective: []Patient seen and examined at bedside. She feels well without pain while in bed , has throbbing pain when she gets out of bed with operative leg dependent. Denies CP, SOB, dizziness, nausea. Objective: []General: Well appearing, NAD LLE: lower leg splint CDI, no erythema proximal or distal. Exposed toes with sensation intact, capillary refill less than two seconds, able to wiggle without pain. Assessment: [] POD 1 sp left achilles lengthening Plan: []NWB LLE Keep splint CDI Needs crutch/ walker training with PT. Ability to ambulate will determine ability to go home today vs. necessity of rehab. Prefers to go home if able Lovenox for DVT prophylaxis Vital Signs Temp 98.3 F 11/05/18 03:05 Pulse 66 11/05/18 03:05 Resp 18 11/05/18 08:02 BP 110/57 11/05/18 03:05 Pulse Ox 96 11/05/18 08:00 Intake & Output 11/04/18 11/05/18 11/05/18 18:59 06:59 18:59 Intake Total 1250 790 100 Output Total 350 700 Balance 1250 440 -600 Weight 248 lb Intake: IV Fluids 1250 0.9% NS 1000 ANCEF 3GM 100ML 100 LR 150 IVPB 100 ABX - CEFAZOLIN 100 Oral 690 100 Output: Urine 350 700 Other: # Bowel Movements 0 Laboratory Last Values Plt Count 256 10^3/uL (150-450) 11/05/18 04:34 MPV 7.9 fL (7.4-10.4) 11/05/18 04:34 Sodium 139 mmol/L (135-145) 11/05/18 04:34 Potassium 3.9 mmol/L (3.5-5.0) 11/05/18 04:34 Chloride 107 mmol/L (101-111) 11/05/18 04:34 Carbon Dioxide 27 mmol/L (22-32) 11/05/18 04:34 Anion Gap 5 mmol/L (2-11) 11/05/18 04:34 BUN 21 mg/dL (6-24) 11/05/18 04:34 Creatinine 0.63 mg/dL (0.51-0.95) 11/05/18 04:34 Est GFR ( Amer) 115.9 (>60) 11/05/18 04:34 Est GFR (Non-Af Amer) 95.8 (>60) 11/05/18 04:34 BUN/Creatinine Ratio 33.3 (8-20) H 11/05/18 04:34 Glucose 143 mg/dL (70-100) H 11/05/18 04:34 Calcium 8.5 mg/dL (8.6-10.3) L 11/05/18 04:34
[2018-11-05] MEDS: Enoxaparin(*) 40 MG/0.4 ML SYR SUBCUT SCH (20:26)
[2018-11-06] MEDS: Acetaminophen TAB* 325 MG PO SCH ×4 (02:32→21:25)
[2018-11-06] MEDS ORDERED: Levothyroxine TAB* 100 MCG TAB PO SCH (06:00)
[2018-11-06 06:32] LABS: Mean Platelet Volume 7.4 fL (7.4-10.4); Platelet Count 266 10^3/uL (150-450)
[2018-11-06] MEDS: Magnesium Hydroxide LIQ* 30 ML UDC PO SCH (08:38)
[2018-11-06] MEDS: Docusate CAP* 100 MG PO SCH ×2 (08:38→21:26)
[2018-11-06] MEDS: Naproxen TAB* 375 MG PO SCH ×2 (08:39→21:26)
[2018-11-06] MEDS: Ondansetron ODT TAB* 4 MG PO PRN ×2 (08:39→21:26)
[2018-11-06] MEDS: Pantoprazole TAB * 40 MG TAB PO SCH ×2 (08:39→21:26)
[2018-11-06] MEDS: oxyCODONE TAB* 5 MG TAB PO PRN ×2 (09:38→22:05)
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
[2018-11-06] MEDS ORDERED: Enoxaparin(*) 40 MG/0.4 ML SYR SUBCUT SCH (21:00)
[2018-11-07] MEDS: Acetaminophen TAB* 325 MG PO SCH ×3 (06:16→13:02)
[2018-11-07] MEDS: Levothyroxine TAB* 88 MCG TAB PO SCH (06:18)
[2018-11-07 06:57] LABS: Mean Platelet Volume 7.5 fL (7.4-10.4); Platelet Count 248 10^3/uL (150-450)
[2018-11-07] MEDS: Naproxen TAB* 375 MG PO SCH (07:48)
[2018-11-07] MEDS: Docusate CAP* 100 MG PO SCH (07:48)
[2018-11-07] MEDS: Pantoprazole TAB * 40 MG TAB PO SCH (07:48)
[2018-11-07] MEDS: Ondansetron ODT TAB* 4 MG PO PRN (09:47)
--- NOTE | 2018-11-07 10:20 | PN ---
Progress Note - Progress Note Date of Service: 11/07/18 SOAP: Subjective: []Patient seen at bedside she is feeling well and ready for DC to [facility]. Denies CP, SOB, dizziness, nausea. Objective: []General: Well appearing, NAD LLE: lower leg splint CDI, no erythema proximal or distal. Exposed toes with sensation intact, capillary refill less than two seconds, able to wiggle without pain. Right calf supple and nontender without erythema, edema or palpable cords Assessment: [] POD 3 sp left Achilles lengthening Plan: []NWB LLE Keep splint CDI [facility] today Lovenox for DVT prophylaxis Vital Signs Temp 98.6 F 11/07/18 07:22 Pulse 64 11/07/18 07:22 Resp 18 11/07/18 07:53 BP 118/55 11/07/18 07:22 Pulse Ox 95 11/07/18 07:53 Intake & Output 11/06/18 11/07/18 11/07/18 18:59 06:59 18:59 Intake Total 210 700 240 Output Total 1200 300 450 Balance -990 400 -210 Intake: Oral 210 700 240 Output: Urine 1200 300 450 Other: # Bowel Movements 1 Estimated Stool Amount Medium Laboratory Last Values Plt Count 248 10^3/uL (150-450) 11/07/18 06:44 MPV 7.5 fL (7.4-10.4) 11/07/18 06:44 Sodium 139 mmol/L (135-145) 11/05/18 04:34 Potassium 3.9 mmol/L (3.5-5.0) 11/05/18 04:34 Chloride 107 mmol/L (101-111) 11/05/18 04:34 Carbon Dioxide 27 mmol/L (22-32) 11/05/18 04:34 Anion Gap 5 mmol/L (2-11) 11/05/18 04:34 BUN 21 mg/dL (6-24) 11/05/18 04:34 Creatinine 0.63 mg/dL (0.51-0.95) 11/05/18 04:34 Est GFR ( Amer) 115.9 (>60) 11/05/18 04:34 Est GFR (Non-Af Amer) 95.8 (>60) 11/05/18 04:34 BUN/Creatinine Ratio 33.3 (8-20) H 11/05/18 04:34 Glucose 143 mg/dL (70-100) H 11/05/18 04:34 Calcium 8.5 mg/dL (8.6-10.3) L 11/05/18 04:34
[2018-11-07] MEDS: oxyCODONE TAB* 5 MG TAB PO PRN (10:22)
--- NOTE | 2018-11-07 10:41 | DS ---
Orthopedic Discharge Summary - Discharge Summary Date of Admission:11/04/18 Date of Discharge: 11/07/18 Date of Surgery: 11/04/18 Attending Orthopedic Provider: Dr Ceballos Pre-operative Diagnosis: left achilles contracture Operative Procedure: left achilles lengthening History: SAMIR MULTANI is a 63 year old F with a left achilles contracture requiring left achilles lengthening. Hospital Course: SAMIR was admitted to [facility] on 11/04/18. Patient underwent a [left achilles lengthing] without complication followed by a brief recovery in PACU and transfer to the Short Stay Surgical Unit in stable condition, she stayed in the hospital due to inability to safely ambulate with crutches. Physical therapy and occupational therapy also participated in this patients care. Post-op day 1: patient was alert and in no acute distress. Splint was clean, dry and intact. Neurovascularly intact distally. Exam unchanged, pain well controlled and deemed stable for DC to [facility] on 11/07/18. Home Medications Medication Instructions Recorded Confirmed Type Levothyroxine TAB* 100 mcg PO SEE INSTRUCTIONS 08/06/18 11/04/18 History Naproxen [Naproxen 375 mg tab] 375 mg PO Q12HR #30 tablet 10/25/18 11/04/18 Rx Ondansetron ODT TAB* [Zofran 4 MG 4 mg PO Q8H PRN #9 tab.odt 10/25/18 11/04/18 Rx Odt TAB*] Lansoprazole [Prevacid] 30 mg PO BID 10/31/18 11/04/18 History Acetaminophen TAB* [Tylenol TAB*] 975 mg PO 0600,1400,2200 tab 11/07/18 Rx Docusate CAP* [Colace Cap*] 100 mg PO BID cap 11/07/18 Rx Enoxaparin(*) [Lovenox(*)] 40 mg SUBCUT 2100 #30 syringe 11/07/18 Rx oxyCODONE TAB* [Roxycodone TAB 5 5 mg PO Q4H PRN tab MDD 8 11/07/18 Rx mg*] oxyCODONE TAB* [Roxycodone TAB 5 10 mg PO Q4H PRN tab MDD 8 11/07/18 Rx mg*] Vital Signs Temp 98.6 F 11/07/18 07:22 Pulse 64 11/07/18 07:22 Resp 18 11/07/18 10:22 BP 118/55 11/07/18 07:22 Pulse Ox 95 11/07/18 07:53 Intake & Output 11/06/18 11/07/18 11/07/18 18:59 06:59 18:59 Intake Total 210 700 240 Output Total 1200 300 450 Balance -990 400 -210 Intake: Oral 210 700 240 Output: Urine 1200 300 450 Other: # Bowel Movements 1 Estimated Stool Amount Medium Condition at discharge: stable Discharge instruction: Discharge to [facility] in stable condition on 11/07/18 Nonweightbearing left lower extremity Keep splint clean, dry and intact Lovenox 40 mg subq injection daily while immobilized percocet 5/325mg 1-2 tabs every 4 hours as needed for pain, max 8 per day Follow up with Dr Ceballos 10-14 days post op, call for appointment, call for any concerns [phone] Go to the emergency room with chest pain or shortness of breath Call the orthopedic office with increased pain, redness, swelling, fever or chills No RX needed at DC, DC to [facility]
[2018-11-07 12:49] VITALS: BP 103/61
== END 2018-11-07 13:40 ==
LOC: OR 11:20 → SSU 18:00
PROVIDERS: ADMIT Orthopaedic Surgery; ATTEND Orthopaedic Surgery
DX: M67.02 Short Achilles tendon (acquired), left ankle (principal); M79.7 Fibromyalgia; K45.8 Other specified abdominal hernia without obstruction or gangrene; M25.775 Osteophyte, left foot; M76.62 Achilles tendinitis, left leg; E03.9 Hypothyroidism, unspecified; M19.90 Unspecified osteoarthritis, unspecified site; K21.9 Gastro-esophageal reflux disease without esophagitis; R06.02 Shortness of breath; R10.9 Unspecified abdominal pain; Z88.6 Allergy status to analgesic agent
CPT/HCPCS: 36415; 80048; 85049; 96372; 96374; 96375; 96376; A9270-GY; C1713; G0378; J0330; J0690; J1100; J1650; J1885; J2250; J2405; J2704; J3010

== ENCOUNTER 2018-12-14 08:47 | Emergency (ER) | payer OTHER ==
--- OUTSIDE RECORDS SUMMARY | 2018-12-14 09:11 | XMS REPORT | Continuity of Care Document ---
:1955 External Reference #:[id number] Author Name Roro Pressley Care Team Providers Name Role Phone Shay Mohan MD Primary Care Physician Unavailable Payers Date Identification Numbers Payment Provider Subscriber Policy Number: [id number] Alex [employer] Number: [id number] [address] PayID: [id number] [place] [address] Expires: 2013 Policy Number: [id number] BS Khalif Zhoumarybel Hall Randall PayID: [id number] [address] [address] [place] [address] Advance Directives Description No Information Available Problems Active Problems Provider Date Obstructive sleep apnea syndrome Leslye Abdalla DNP, RN, Onset: 08/10/2015 [facility] Morbid obesity Roro Lowe MD Onset: 09/14/2016 Hypersomnia, unspecified Roro Lowe MD Onset: 09/14/2016 Traumatic rupture of collateral Shay Em M.D. Onset: 12/26/2016 ligament of left little finger at metacarpophalangeal and interphalangeal joint, initial encounter Nondisplaced fracture of proximal Shay Em M.D. Onset: 04/17/2017 phalanx of left middle finger, subsequent encounter for fracture with routine healing Sciatica Shay Em M.D. Onset: 07/13/2017 Tibialis tendinitis Shay Em M.D. Onset: 07/13/2017 Sprain of knee and leg Prem Iniguez MD Onset: 10/28/2018 Achilles bursitis Prem Iniguez MD Onset: 10/28/2018 Enthesopathy of ankle AND/OR tarsus Prem Iniguez MD Onset: 10/28/2018 Family History Date Family Member(s) Observation Comments General back problems General Esophagus Cancer Father due to at age 86 () Mother due to alive age 85 healthy () Siblings 5 Social History Type Date Description Comments Sex Unknown Marital Status Lives With Occupation Disabled ETOH Use Denies alcohol use Tobacco Use Start: Unknown Patient has never smoked Smoking Status Reviewed: 12/10/18 Patient has never smoked Exercise Type/Frequency Exercises sporadically Allergies, Adverse Reactions, Alerts Active Allergies Reaction Severity Comments Date Demerol 11/12/2012 Fiorinal 11/12/2012 Erythromycin 11/12/2012 Bee Sting 11/18/2013 Aspirin 11/18/2013 Shellfish-derived Products 12/08/2013 Latex 12/08/2013 Betadine 09/24/2018 Medications Active Medications SIG Qnty Indications Ordering Date Provider Lovenox 1 injection 30units Immanuel Tucker, 11/29/2018 40mg/0.4ML subcutaneous every M.D. Solution 24 hours Orthotics Dx: Posterior 1Pair Shay Em, 07/20/2017 Inserts tibial tendon M.D. dysfnx Support arch, control hindfoot motion Ibuprofen by mouth three Unknown 09/13/2016 800mg times a day as Tablets needed Levothyroxine Sodium M-W- Unknown 03/17/2015 100mcg Tablets Oxycodone-Acetaminop 1-2 tabs by mouth 50tabs Garrett Torres, 11/17/2013 hen every 4 hours for M.D. 5-325mg Tablets pain Prevacid 1 by mouth every 30caps Unknown 30mg day Capsules DR Lindseythyroxanastasia Elaine [id number] Unknown 88mcg Tablets Naproxen Unknown History Medications Magnesium-Oxide 1 by mouth every Unknown 10/27/2015 - 400mg Tablets day 02/16/2016 Bactrim DS 1 po bid for 7 14tabs Quoc Saini M.D. 09/23/2012 - 800-160mg Tablets days 11/17/2013 Percocet 1-2 tabs po q4-6 90tabs Quoc Saini M.D. 09/18/2012 - 5-325mg Tablets prn pain 11/17/2013 Tramadol HCL four times a day 50tabs Unknown - 50mg Tablets as needed 09/23/2018 Morphine Sulfate ER Unknown - 15mg 09/23/2018 Tablets ER Cipro 1 by mouth twice Unknown - 500mg Tablets a day 09/23/2018 Medications Administered in Office Medication SIG Qnty Indications Ordering Provider Date Depomedrol 40MG Immanuel Ceballos M.D. 09/24/2018 Injection Depomedrol 40MG Immanuel Ceballos M.D. 07/09/2018 Injection Depomedrol 80MG Joseluis Multani, 06/25/2013 Injection RPA-C Depomedrol 80MG Quoc Saini M.D. 03/17/2013 Injection Depomedrol 80MG Quoc Saini M.D. 11/11/2012 Injection Depomedrol 80MG Joseluis Multani, 07/08/2012 Injection RPA-C Hyaluron Or Immanuel Ceballos M.D. 05/09/2012 LiyahOrthovisc,For Intra-Articular Inj Per Dose Injection Hyaluron Or Immanuel Ceballos M.D. 05/02/2012 Liyah,Orthovisc,For Intra-Articular Inj Per Dose Injection Hyaluron Or Immanuel Ceballos M.D. 04/25/2012 LiyahOrthovisjarrett,For Intra-Articular Inj Per Dose Injection Immunizations Description No Information Available Vital Signs Date Vital Result Comment 12/10/2018 11:39am Height 66 inches 5'6" Weight 248.00 lb Heart Rate 80 /min BP Systolic 140 mmHg BP Diastolic 76 mmHg Respiratory Rate 14 /min Pain Level 0 BMI (Body Mass Index) 40.0 kg/m2 12/03/2018 9:59am Height 66 inches 5'6" Weight 268.00 lb Heart Rate 105 /min BP Systolic 130 mmHg BP Diastolic 88 mmHg Body Temperature 98.7 F Pain Level 0 BMI (Body Mass Index) 43.3 kg/m2 11/14/2018 11:36am Height 66 inches 5'6" Heart Rate 84 /min BP Systolic 122 mmHg BP Diastolic 90 mmHg Respiratory Rate 22 /min Body Temperature 98.8 F Pain Level 0 10/28/2018 10:30am Height 66 inches 5'6" BP Systolic 124 mmHg BP Diastolic 86 mmHg Respiratory Rate 16 /min Body Temperature 98.5 F Pain Level 3 09/24/2018 10:48am Height 66 inches 5'6" Weight 250.00 lb Patient stated Heart Rate 64 /min BP Systolic 118 mmHg BP Diastolic 78 mmHg Respiratory Rate 16 /min Pain Level 6 BMI (Body Mass Index) 40.3 kg/m2 08/13/2018 11:52am Height 66 inches 5'6" Heart Rate 80 /min BP Systolic 130 mmHg BP Diastolic 82 mmHg Body Temperature 99.5 F Pain Level 0 07/09/2018 8:50am Height 66 inches 5'6" Heart [...] Test Result H/L Range Note Urinalysis 06/25/2013 [facility] Urine Color Yellow [address] [place] [address] [phone] Urine Appearance Clear Urine Specific [place] 1.023 1.010-1.030 Urine Esterase 2+ Abnormal Negative Urine Nitrate Negative Negative Urine Urobilinogen Negative E.U./dL Negative Urine Protein Negative mg/dL Negative Urine pH 6.0 5-9 Urine Blood Negative Negative Urine Ketones Negative mg/dL Negative Urine Bilirubin Negative Negative Urine Glucose Negative mg/dL Negative Urine Microscopic 06/25/2013 [facility] Urine WBC 1+ (<[address] /hpf) [place] [address] [phone] Urine RBC 1+ (<3 /hpf) None Seen Urine Epithelial Cells 3+ Squamous /hpf None Seen Bacteria Urine 1+ None Seen Urine Culture And 06/25/2013 [facility] Urine Culture (SEE NOTE ) [address] [place] [address] [phone] CBC No Diff 06/25/2013 [facility] White Blood 8.2 10^3/uL 4.8 -[address] Count .8 [place] [address] [phone] Red Blood Count 4.57 10^6/uL 4.0-5.4 Hemoglobin 13.2 g/dL 12.0-16.0 Hematocrit 40 % 35-47 Mean Corpuscular Volume 88 fL 80-97 Mean Corpuscular Hemoglobin 29 pg 27-31 Mean Corpuscular HGB Conc 33 g/dL 31-36 Red Cell Distribution Width 15 % 10.5-15 Platelet Count 346 10^3/uL 150-450 Mean Platelet Volume 8 um3 7.4-10.4 Type & Screen 06/25/2013 [facility] Patient Blood [place] [address] [phone] Antibody Screen NEGATIVE Basic Metabolic Panel 06/25/2013 [facility] Sodium 136 mmol/L 133-145 [place] [address] [phone] Potassium 4.7 mmol/L 3.5-5.0 Chloride 100 mmol/L Low 101-111 Co2 Carbon Dioxide 28.0 mmol/L 22-32 Anion Gap 8.0 mmol/L 2-11 Glucose 94 mg/dL 70-100 Blood Urea Nitrogen 15 mg/dL 6-24 Creatinine 0.70 mg/dL 0.50-1.40 BUN/Creatinine Ratio 21.4 High 8-20 Calcium 9.4 mg/dL 8.1-9.9 Egfr Non- 86.6 >60 Egfr 111.3 >60 2 Laboratory test 06/25/2013 [facility] TSH (Thyroid 2.72 0.34- 5.60 [address] Stimulating miu/[place] [address] Horm) [phone] 1 RUN DATE: 06/27/13 [facility] LAB LIVE PAGE 1 RUN TIME: 1028 [address] [facility], [place], [place] [address] Specimen Inquiry Name: CECY MULTANI : [address]: Quoc Saini MD Acct: [id number] Unit: [id number] AGE: 57 Location: [facility] Re06/25/13 SEX: F Status: REG REF SPEC: [id number] NURIS: 06/25/13-[address] [facility] [address]: Quoc Saini MD REQ: [id number] RECD: 06/25/13 STATUS: LESLEE CONTI DR: Shay Mohan MD _ SOURCE: URINE SPDESC: ORDERED: Urine Culture Procedure Result Verified Site Urine Culture Final 06/27/13- 1028 ML Organism 1 STREP GROUP B [place] Count 25-50,000 (Moderate) CFU/ML Organism 2 NORMAL MAI [place] Count 10-25,000 (Moderate) CFU/ML Susceptibility testing of penicillins and other B-lactams approved by FDA for treatment of Streptococcus pyogenes (Group A Strep) and Streptococcus agalactiae (Group B Strep) is not necessary for clinical purposes and need not be done routinely, since as with vancomycin, resistant strains have not been recognized. (CLSI H932-Z50;p.66) Positive isolates will be saved for one week. Please call the Microbiology Laboratory if further susceptibility testing is needed. END OF REPORT * ML=Testing performed at Main Lab DEPARTMENT OF PATHOLOGY, [address] [place] [address] Charles Mo M.D. Director [facility] Permit #[id number] 2 Because ethnic data is not always [...] AA 07/08/13 Procedures Date Code Description Status 12/03/2018 93348 Walking Cast Completed 11/04/2018 93265 Repair Achilles Tendon Secondary Completed 11/04/2018 91882 Repair Achilles Tendon Secondary Completed 09/24/2018 30124 Inject/Drain Joint/Bursa Small W/O US Completed 07/09/2018 52801 Inject/Drain Joint/Bursa Small W/O US Completed 07/08/2015 71658 Polysomnography Sleep Staging 4+ Parameters W/Cpap Completed 04/07/2015 01320 Polysomnography Sleep Staging 4+ Parameters Completed 08/04/2013 85759 Xray Knee 3 Views Completed 08/04/2013 54334 Rad Exam; Knee, Ap&L Completed 07/08/2013 02175 TKR Total Knee Replacement Completed 07/08/2013 47432 TKR Total Knee Replacement Completed 06/25/2013 00311 EKG, Interpretation Only Completed 06/25/2013 22002 Rad Exam; Both Knees, Standing Ap Completed 06/25/2013 40158 Xray Knee 3 Views Completed 06/25/2013 34646 Rad Exam; Knee, Ap&L Completed 06/25/2013 38279 Inject/Drain Joint/Bursa Major W/O US Completed 03/17/2013 54602 Inject/Drain Joint/Bursa Major W/O US Completed 11/11/2012 12737 Rad Exam; Both Knees, Standing Ap Completed 11/11/2012 92199 Xray Knee 3 Views Completed 11/11/2012 44096 Rad Exam; Knee, Ap&L Completed 11/11/2012 24122 Inject/Drain Joint/Bursa Major W/O US Completed 10/01/2012 49282 TKR Total Knee Replacement Completed 10/01/2012 35598 TKR Total Knee Replacement Completed 09/18/2012 13604 EKG, Interpretation Only Completed 07/08/2012 44479 Xray Knee 3 Views Completed 07/08/2012 59109 Xray Knee 3 Views Completed 07/08/2012 68816 Rad Exam; Knee, Ap&L Completed 07/08/2012 88919 Rad Exam; Knee, Ap&L Completed 07/08/2012 Inject/Drain Joint/Bursa Major W/O US Completed 05/09/2012 Inject/Drain Joint/Bursa Major W/O US Completed 05/02/2012 Inject/Drain Joint/Bursa Major W/O US Completed 04/25/2012 Inject/Drain Joint/Bursa Major W/O US Completed Encounters Type Date Location Provider Dx Diagnosis Office Visit 10/28/2018 Orthopedic Prem Iniguez, S86.112A Strain musc/ tend 10:00a [facility] HOFFMAN post grp at low leg level, left leg, init M76.62 Achilles tendinitis, left leg M25.775 Osteophyte, left foot Office Visit 08/13/2018 11:15a Orthopedic Immanuel Lopez.62 [facility] Ceballos M.D. tendinitis, left leg Office Visit 08/09/2018 8:58a [facility] Immanuel K55.9 Vascular disorder Assoc,omero Tong M.D. of intestine, Hospitalists unspecified K59.00 Constipation, unspecified K21.9 Gastro-esophageal reflux disease without esophagitis Office Visit 08/08/2018 [facility] Fatimah K52.9 Noninfective 8:57a Assoc,omero Hoskins D.O. gastroenteritis and Hospitalists colitis, unspecified R94.5 Abnormal results of liver function studies E03.9 Hypothyroidism, unspecified [facility]infect[facility] 8:54a Assocomero D.O. gastroenteritis and Hospitalists colitis, unspecified R94.5 Abnormal results of liver function studies E03.9 Hypothyroidism, unspecified Office Visit 08[facility]06[facility]2018 [facility] K52.9 Noninfective 8:53a Assoc,omero Hoskins D.O. gastroenteritis and Hospitalists colitis, unspecified E03.9 Hypothyroidism, unspecified K21.9 Gastro-esophageal reflux disease without esophagitis Office Visit 06/11/2018 9:30a Orthopedic Immanuel Roberson76.62 [facility] [place] Ceballos tendiniterra, left Azael leg Office Visit 05/14/2018 10:15a Orthopedic Immanuel Santana [facility] Ceballos tendinitis, left C.M.A. leg M19.072 Primary osteoarthritis, left ankle and foot Office Visit 03/28/2018 8:00a Orthopedic Immanuel M76.62 [facility] [place] Ceballos tendinitis, left C.M.A. leg M19.072 Primary osteoarthritis, left ankle and foot Office Visit 07/13/2017 1:30p Orthopedic Shay Em M54.41 Lumbago with Services Of Addy Isbell sciatica, right AT [place] side M76.821 Posterior tibial tendinitis, right leg Office Visit 04/17/2017 1:15p Orthopedic Shay Em, S63.417D Traum rupt of [facility] Add[facility] Isbell collat ligmt AT [place] of l lit fngr at [facility], subs S62.643D Nondisp fx of prox phalanx of l mid fngr, 7thD Office Visit 03/06/2017 3:45p Orthopedic hSay Em S63.417D Traum rupt of [facility] Addy Isbell collat ligmt AT [place] of l lit fngr at [facility]/IP , subs S62.643D Nondisp fx of prox phalanx of l mid fngr, 7thD Office Visit 02/13/2017 Orthopedic Shay S63.417A Traum rupt of 3:30p Services Of Addy Em M.D. collat ligmt of l AT [place] lit fngr [facility] init Office Visit 12/26/2016 Edu Day S63.417A Traum rupt of 1:00p Services Of Addy Em M.D. collat ligmt of l AT [place] lit fngr at [facility]/IP , init Office Visit 09/14/2016 Pulmonology & Roro G47.33 Obstructive sleep 10:00a Sleep Services AT MD Mynor apnea (adult) [place] (pediatric) E66.01 Morbid (severe) obesity due to excess calories G47.10 Hypersomnia, unspecified Office Visit 02/17/2016 Pulmonology & iNc Mckeon, G47.33 Obstructive sleep 1:00p Sleep Services AT [place] apnea (adult) [place] (pediatric) Office Visit 10/28/2015 Pulmonology And Nic Mckeon G47.33 Obstructive sleep 1:00p [facility] [place] apnea (adult) [facility] (pediatric) Office Visit 08/10/2015 Pulmonology And Leslye G47.33 Obstructive sleep 1:30p Sleep Services Of WADE Abdalla, RN, apnea (adult) [facility]- (pediatric) G47.10 Hypersomnia, unspecified E66.01 Morbid (severe) obesity due to excess calories Office Visit 05/26/2015 10:15a Pulmonology And Nikhil Johnson G47.33 Obstructive sleep [facility] [place] apnea (adult) [facility] (pediatric) R06.83 Snoring Office Visit 03/18/2015 1:45p Pulmonology And Nikhil Johnson, 327.23 Obstructive Sleep [facility] [place] Apnea Adult & [facility] Pediatric 780.54 Hypersomnia Unspecified Office Visit 12/08/2013 Edu Torres, 840.4 Sprains & Strains 3:00p [facility] [place] Rotator Cuff AT [place] (Capsule) Office Visit 11/17/2013 Edu Torres 840.4 Sprains & Strains 1:45p [facility] [place] Rotator Cuff AT [place] (Capsule) Office Visit 07/14/2013 [facility] Shaheen Harden v66.0 Convalescence 1:11p MD Dustin Chan M.D. Following Surgery Office Visit 06/02/2013 Eud Torres, 840.4 Sprains & Strains 10:45a [facility] [place] Rotator Cuff AT [place] (Capsule) Office Visit 05/22/2013 Edu Gambino 840.4 Sprains & Strains 11:15a Services Of Addy Ceballos M.D. Rotator Cuff AT [place] (Capsule) Office Visit 04/24/2013 Edu Gambino 840.4 Sprains & Strains 11:30a Services [facility] Addy Ceballos M.D. Rotator Cuff AT [place] (Capsule) Office Visit 03/17/2013 Orthopedic Quoc aSini, 715.16 Osteoarthrosis 1:00p [facility] [place] Localized Prim Lower C.M.A. Leg 719.46 Pain Joint Lower Leg 715.96 Osteoarthrosis Unspec Genlzd Or Localized Lower Leg V54.81 Aftercare Following Joint Replacement V43.64 Hip Replacement By Other Means Office Visit 11/11/2012 1:30p Orthopedic Quoc Saini 715.96 Osteoarthrosis [facility] [place] Unspec Genlzd Or C.M.A. Localized Lower Leg 715.16 Osteoarthrosis Localized Prim Lower Leg Office Visit 07/24/2012 Orthopedic Quoc Saini 715.96 Osteoarthrosis 10:45a [facility] [place] Unspec Genlzd Or C.M.A. Localized Lower Leg Office Visit 07/08/2012 Orthopedic Joseluis Hamilton 715.96 Osteoarthrosis 10:00a Services Of Rangel Unspec Genlzd Or C.M.A. RPA-C Localized Lower Leg Office Visit 06/20/2012 Orthopedic Immanuel Ceballos 715.96 Osteoarthrosis 3:45p Services Of Addy Isbell Unspec Genlzd Or AT [place] Localized Lower Leg Office Visit 05/09/2012 Orthopedic Immanuel Ceballos 715.96 Osteoarthrosis 8:00a Services [facility] Addy Isbell Unspec Genlzd Or AT [place] Localized Lower Leg Office Visit 05/02/2012 Orthopedic Immanuel Ceballos 715.96 Osteoarthrosis 9:30a Services Of Addy Ibsell Unspec Genlzd Or AT [place] Localized Lower Leg Office Visit 04/25/2012 Orthopedic Immanuel Ceballos 715.96 Osteoarthrosis 8:45a Services [facility] Addy Isbell Unspec Genlzd Or AT [place] Localized Lower Leg Office Visit 03/14/2012 Orthopedic Immanuel Ceballos 715.96 Osteoarthrosis 1:45p Services [facility] Addy Isbell Unspec Genlzd Or AT [place] Localized Lower Leg Plan of Treatment Future Appointment(s):12/17/2018 10:15 am - Immanuel Ceballos M.D. at [facility]/24/2018 10:45 am - Immanuel Ceballos M.D. at [facility]
--- OUTSIDE RECORDS SUMMARY | 2018-12-14 09:11 | XMS REPORT | Continuity of Care Document ---
:1955 External Reference #:[id number] Author Name Barbara Coronado Care Team Providers Name Role Phone Shay Mohan MD Primary Care Physician Unavailable Payers Date Identification Numbers Payment Provider Subscriber Policy Number: [id number] [employer] Number: [id number] [address] PayID: [id number] [place] [address] Expires: 2013 Policy Number: [id number] BS Khalif Zhoumarybel Hall Randall PayID: [id number] [address] [address] [place] [address] Advance Directives Description No Information Available Problems Active Problems Provider Date Obstructive sleep apnea syndrome Leslye Abdalla DNP, RN, Onset: 08/10/2015 [facility] Morbid obesity Roro Lowe MD Onset: 09/14/2016 [...] Patient has never smoked Smoking Status Reviewed: 12/03/18 Patient has never smoked Exercise Type/Frequency Exercises [...] every 30caps Unknown 30mg day Capsules DR Lnidseythyroxanastasia Elaine [id number]-[id number]-sun Unknown 88mcg Tablets Naproxen Unknown History Medications [...] Injection Hyaluron Or Immanuel Ceballos M.D. 04/25/2012 LiyahOrthovisc,For Intra-Articular Inj Per Dose Injection Immunizations Description No Information Available Vital Signs Date Vital Result Comment 12/03/2018 9:59am Height 66 inches 5'6" Weight [...] Test Result H/L Range Note Urinalysis 06/25/2013 [facility] Urine Color Yellow [address] [place] [address] [phone] Urine Appearance Clear Urine Specific [place] 1.023 1.010-1.030 Urine Esterase 2+ Abnormal Negative Urine Nitrate Negative Negative Urine Urobilinogen Negative E.U./dL Negative Urine Protein Negative mg/dL Negative Urine pH 6.0 5-9 Urine Blood Negative Negative Urine Ketones Negative mg/dL Negative Urine Bilirubin Negative Negative Urine Glucose Negative mg/dL Negative Urine Microscopic 06/25/2013 [facility] Urine WBC 1+ (<10 None Seen [address] /hpf) [place] [address] [phone] Urine RBC 1+ (<3 /hpf) None Seen Urine Epithelial Cells 3+ Squamous /hpf None Seen Bacteria Urine 1+ None Seen Urine Culture And 06/25/2013 [facility] Urine Culture (SEE NOTE ) 1 Sensitivities [address] [place] [address] [phone] CBC No Diff 06/25/2013 [facility] White Blood 8.2 10^3/uL 4.8 -10 [address] [facility] Count .8 [place] [address] [phone] Red Blood Count 4.57 10^6/uL 4.0-5.4 Hemoglobin 13.2 g/dL 12.0-16.0 Hematocrit 40 % 35-47 Mean Corpuscular Volume 88 fL 80-97 Mean Corpuscular Hemoglobin 29 pg 27-31 Mean Corpuscular HGB Conc 33 g/dL 31-36 Red Cell Distribution Width 15 % 10.5-15 Platelet Count 346 10^3/uL 150-450 Mean Platelet Volume 8 um3 7.4-10.4 Type & Screen 06/25/2013 [facility] Patient Blood Type O Negative [address] [place] [address] [phone] Antibody Screen NEGATIVE Basic Metabolic Panel 06/25/2013 [facility] Sodium 136 mmol/L 133-145 [address] [place] [address] [phone] Potassium 4.7 mmol/L 3.5-5.0 Chloride 100 mmol/L Low 101-111 Co2 Carbon Dioxide 28.0 mmol/L 22-32 Anion Gap 8.0 mmol/L 2-11 Glucose 94 mg/dL 70-100 Blood Urea Nitrogen 15 mg/dL 6-24 Creatinine 0.70 mg/dL 0.50-1.40 BUN/Creatinine Ratio 21.4 High 8-20 Calcium 9.4 mg/dL 8.1-9.9 Egfr Non- 86.6 >60 Egfr 111.3 >60 2 Laboratory test 06/25/2013 [facility] TSH (Thyroid 2.72 0.34- 5.60 3 finding [facility] Stimulating miu/[place] [address] Horm) [phone] 1 RUN DATE: 06/27/13 [facility] LAB LIVE PAGE 1 RUN TIME: [address] [facility] [place] [address] Specimen Inquiry Name: CECY MULTANI : [address]: Quoc Saini MD Acct: [id number] Unit: [id number] AGE: 57 Location: PAT Re06/25/13 SEX: F Status: REG REF SPEC: [id number] NURIS: 06/25/13-[address]: Quoc Saini MD REQ: [id number] RECD: 06/25/13 STATUS: LESLEE CONTI DR: Shay Mohan MD _ SOURCE: URINE SPDESC: ORDERED: Urine Culture Procedure Result Verified Site Urine Culture Final 06/27/13- 1028 ML Organism 1 STREP GROUP B [place] Count 25-50,000 (Moderate) CFU/ML Organism 2 NORMAL MAI [place] Count 10-25,000 (Moderate) CFU/ML Susceptibility testing of penicillins and other B-lactams approved by FDA for treatment of Streptococcus pyogenes (Group A Strep) and Streptococcus agalactiae (Group B Strep) is not necessary for clinical purposes and need not be done routinely, since as with vancomycin, resistant strains have not been recognized. (CLSI D400-E99;p.66) Positive isolates will be saved for one week. Please call the Microbiology Laboratory if further susceptibility testing is needed. END OF REPORT * ML=Testing performed at Main Lab DEPARTMENT OF PATHOLOGY, [address] [place] [address] Charles Mo M.D. Director [facility] Permit #[id number] 2 Because ethnic data is not always [...] 07/08/13 Procedures Date Code Description Status 12/03/2018 39434 Walking Cast Completed 11/04/2018 84489 Repair Achilles Tendon Secondary Completed 11/04/2018 35284 Repair Achilles Tendon Secondary Completed 09/24/201827441 Inject/Drain Joint/Bursa Small W/O US Completed 07/09/2018 36836 Inject/Drain Joint/Bursa Small W/O US Completed 07/08/2015 11504 Polysomnography Sleep Staging 4+ Parameters W/Cpap Completed 04/07/2015 20434 Polysomnography Sleep Staging 4+ Parameters Completed 08/04/2013 65168 Xray Knee 3 Views Completed 08/04/2013 79831 Rad Exam; Knee, Ap&L Completed 07/08/2013 03123 TKR Total Knee Replacement Completed 07/08/2013 80575 TKR Total Knee Replacement Completed 06/25/2013 87157 EKG, Interpretation Only Completed 06/25/2013 05643 Rad Exam; Both Knees, Standing Ap Completed 06/25/2013 34602 Xray Knee 3 Views Completed 06/25/2013 02782 Rad Exam; Knee, Ap&L Completed 06/25/2013 23200 Inject/Drain Joint/Bursa Major W/O US Completed 03/17/2013 68349 Inject/Drain Joint/Bursa Major W/O US Completed 11/11/2012 37876 Rad Exam; Both Knees, Standing Ap Completed 11/11/2012 17921 Xray Knee 3 Views Completed 11/11/2012 87099 Rad Exam; Knee, Ap&L Completed 11/11/201262983 Inject/Drain Joint/Bursa Major W/O US Completed 10/01/2012 49353 TKR Total Knee Replacement Completed 10/01/2012 53544 TKR Total Knee Replacement Completed 09/18/2012 26701 EKG, Interpretation Only Completed 07/08/2012 69039 Xray Knee 3 Views Completed 07/08/2012 92733 Xray Knee 3 Views Completed 07/08/2012 12632 Rad Exam; Knee, Ap&L Completed 07/08/2012 41437 Rad Exam; Knee, Ap&L Completed 07/08/2012 38574 Inject/Drain Joint/Bursa Major W/O US Completed 05/09/2012 10885 Inject/Drain Joint/Bursa Major W/O US Completed 05/02/2012 36969 Inject/Drain Joint/Bursa Major W/O US Completed 04/25/201291754 Inject/Drain Joint/Bursa Major W/O US Completed Encounters Type Date Location Provider Dx Diagnosis Office Visit 10/28/2018 Orthopedic Prem Iniguez, S86.112A Strain musc/ tend 10:00a [facility] HOFFMAN post grp at low leg level, left leg, init M76.62 Achilles tendinitis, left leg M25.775 Osteophyte, left foot Office Visit 08/13/2018 11:15a Orthopedic Immanuel Roberson76.62 Achilles [facility] Ceballos M.D. tendinitis, left leg Office Visit 08/09/2018 8:58a [facility] Immaneul K55.9 Vascular disorder Assoc,omero Tong M.D. of intestine, Hospitalists unspecified K59.00 Constipation, unspecified K21.9 Gastro-esophageal reflux disease without esophagitis Office Visit 08/08/2018 [facility] Fatimah K52.9 Noninfective 8:57a Assoc,omero Hoskins D.O. gastroenteritis and Hospitalists colitis, unspecified R94.5 Abnormal results of liver function studies E03.9 Hypothyroidism, unspecified [facility] 8:54a Assoc,omero Hoskins D.O. gastroenteritis and Hospitalists colitis, unspecified R94.5 Abnormal results of liver function studies E03.9 Hypothyroidism, unspecified [facility]infective 8:53a Assoc,omero Hoskins D.O. gastroenteritis and Hospitalists colitis, unspecified E03.9 Hypothyroidism, unspecified K21.9 Gastro-esophageal reflux disease without esophagitis Office Visit 06/11/2018 9:30a Orthopedic Immanuel Lopez.Sheeba Achilles [facility] Ceballos tendiniterra, left C.M.A. leg Office Visit 05/14/2018 10:15a Orthopedic Immanuel Lopez.Sheeba Achilles [facility] Ceballos tendinitis, left C.M.A. leg M19.072 Primary osteoarthritis, left ankle and foot Office Visit 03/28/2018 8:00a Orthopedic Immanuel Lopez.Sheeba Achilles [facility] [place], M.D. tendinitis, left C.M.A. leg M19.072 Primary osteoarthritis, left ankle and foot Office Visit 07/13/2017 1:30p Orthopedic Shay Em, M54.41 Lumbago with [facility] Isbell sciatica, right AT [place] side M76.821 Posterior tibial tendinitis, right leg Office Visit 04/17/2017 1:15p Orthopedic Shay Em, S63.417D Traum rupt of [facility] Isbell collat ligmt AT [place] of l lit fngr at [facility]/IP jt, subs S62.643D Nondisp fx of prox phalanx of l mid fngr, 7thD Office Visit 03/06/2017 3:45p Orthopedic Shay Em S63.417D Traum rupt of [facility] Isbell collat ligmt AT [place] of l lit fngr at [facility]/IP jt, subs S62.643D Nondisp fx of prox phalanx of l mid fngr, 7thD Office Visit 02/13/2017 Orthopedic Shay S63.417A Traum rupt of 3:30p [facility] Em M.D. collat ligmt of l AT [place] lit fngr at [facility]/IP jt, init Office Visit 12/26/2016 Orthopedic Shay S63.417A Traum rupt of 1:00p [facility] Em M.D. collat ligmt of l AT [place] lit fngr at [facility]/IP t, init Office Visit 09/14/2016 Pulmonology & Roro [...] 1:00p [facility] apnea (adult) Add[facility] (pediatric) Office Visit 08/10/2015 Pulmonology Karli Gavin G47.33 Obstructive sleep 1:30p Sleep [facility] WADE Abdalla, RN, apnea (adult) [facility] CAUSTIC OPERATOR-BC (pediatric) G47.10 Hypersomnia, unspecified E66.01 Morbid (severe) obesity due to excess calories Office Visit 05/26/2015 10:15a Pulmonology And Nikhil Johnson, G47.33 Obstructive sleep [facility] apnea (adult) [facility] (pediatric) R06.83 Snoring Office Visit 03/18/2015 1:45p Pulmonology And Nikhil Johnson, 327.23 Obstructive Sleep [facility] Apnea Adult & [facility] Pediatric 780.54 Hypersomnia Unspecified Office Visit 12/08/2013 Orthopedic Garrett Torres, 840.4 Sprains & Strains 3:00p [facility] Isbell Rotator Cuff AT [place] (Capsule) Office Visit 11/17/2013 Edu Torres 840.4 Sprains & Strains 1:45p [facility] Isbell Rotator Cuff AT [place] (Capsule) Office Visit 07/14/2013 [facility] Shaheen Harden v66.0 Convalescence 1:11p MD Dustin Chan M.D. Following Surgery Office Visit 06/02/2013 Edu Torres, 840.4 Sprains & Strains 10:45a [facility] Isbell Rotator Cuff AT [place] (Capsule) Office Visit 05/22/2013 Edu Gambino 840.4 Sprains & Strains 11:15a [facility] Ceballos M.D. Rotator Cuff AT [place] (Capsule) Office Visit 04/24/2013 Orthopedic Immanuel 840.4 Sprains & Strains 11:30a [facility] Ceballos M.D. Rotator Cuff AT [place] (Capsule) Office Visit 03/17/2013 Orthopedic Quoc Saini, 715.16 Osteoarthrosis 1:00p [facility] Localized Prim Lower C.M.A. Leg 719.46 Pain Joint Lower Leg 715.96 Osteoarthrosis Unspec Genlzd Or Localized Lower Leg V54.81 Aftercare Following Joint Replacement V43.64 Hip Replacement By Other Means Office Visit 11/11/2012 1:30p Orthopedic Quoc Saini, 715.96 Osteoarthrosis [facility] Unspec Genlzd Or C.M.A. Localized Lower Leg 715.16 Osteoarthrosis Localized Prim Lower Leg Office Visit 07/24/2012 Orthopedic Quoc Saini, 715.96 Osteoarthrosis 10:45a [facility] Unspec Genlzd Or C.M.A. Localized Lower Leg Office Visit 07/08/2012 Orthopedic Joseluis Hamilton 715.96 Osteoarthrosis 10:00a Services Of Rangel, Unspec Genlzd Or C.M.A. RPA-C Localized Lower Leg Office Visit 06/20/2012 Orthopedic Immanuel Ceballos 715.96 Osteoarthrosis 3:45p Services Of Sewer Pipe Offbearer [place] Unspec Genlzd Or AT [place] Localized Lower Leg Office Visit 05/09/2012 Orthopedic Immanuel Ceballos 715.96 Osteoarthrosis 8:00a Services Of Sewer Pipe Offbearer Karol.Elizabeth. Unspec Genlzd Or AT [place] Localized Lower Leg Office Visit 05/02/2012 Orthopedic Immanuel Ceballos 715.96 Osteoarthrosis 9:30a Services Of Sewer Pipe Offbearer [place] Unspec Genlzd Or AT [place] Localized Lower Leg Office Visit 04/25/2012 Orthopedic Immanuel Ceballos 715.96 Osteoarthrosis 8:45a Services Of Sewer Pipe Offbearer Karol.Elizabeth. Unspec Genlzd Or AT [place] Localized Lower Leg Office Visit 03/14/2012 Orthopedic Immanuel Ceballos 715.96 Osteoarthrosis 1:45p Services Of Sewer Pipe Offbearer Karol.Elizabeth. Unspec Genlzd Or AT [place] Localized Lower Leg Plan of Treatment Future Appointment(s):12/24/2018 10:45 am - Immanuel Ceballos M.D. at [facility]12/03/2018 - Immanuel Ceballos M.D.S86.112D Strain of other muscle(s) and tendon(s) of posterior muscleFollow up:2-3 weeks
--- NOTE | 2018-12-14 09:44 | ED ---
Lower Extremity - HPI Summary HPI Summary: Pt. is a 63 y.o female who presents to the ER for cast replacement. Pt. ruptured left Achilles tendon 10/25/18 and has surgical repair. Pt. states she had to have cast replaced last week after getting initial cast wet. Pt. states that cast today is splitting apart and she called ortho and was told to come ER for cast removal and replacement. - History of Current Complaint Chief Complaint: EDExtremityLower Stated Complaint: NEEDS CAST REPLACED PER PT Time Seen by Provider: 12/14/18 08:56 Hx Obtained From: Patient Pain Intensity: 0 - Allergies/Home Medications Allergies/Adverse Reactions: Allergies Allergy/AdvReac Type Severity Reaction Status Date / Time adhesive Allergy Blisters Verified 12/14/18 08:48 Adhesive Tape Allergy Blisters Verified 12/14/18 08:48 aspirin Allergy See Comment Verified 12/14/18 08:48 butalbital Allergy Hallucinati Verified 12/14/18 08:48 ons erythromycin base Allergy GI Upset Verified 12/14/18 08:48 latex Allergy Swelling Verified 12/14/18 08:48 meperidine [From Demerol] Allergy Nausea And Verified 12/14/18 08:48 Vomiting povidone-iodine Allergy See Comment Verified 12/14/18 08:48 [From Betadine] soap [From Betadine] Allergy See Comment Verified 12/14/18 08:48 SEAFOOOD Allergy ANAPHYLACTI Uncoded 12/14/18 08:48 C SEASONAL Allergy Shortness Uncoded 12/14/18 08:48 HAYFEVER/ENVIRONMENTAL of Breath WILD PARSNIPS Allergy SEVERE RASH Uncoded 12/14/18 08:48 PMH/Surg Hx/FS Hx/Imm Hx Previously Healthy: Yes Endocrine/Hematology History: Reports: Hx Thyroid Disease - hypo, Hx Anemia - mild Denies: Hx Diabetes Cardiovascular History: Reports: Other Cardiovascular Problems/Disorders - cardiac ablation x1 Denies: Hx Hypertension, Hx Pacemaker/ICD Respiratory History: Reports: Hx Asthma - mild, Hx Pneumonia, Hx Sleep Apnea Denies: Other Respiratory Problems/Disorders GI History: Reports: Hx Gastroesophageal Reflux Disease - CONTROL WITH MEDICATION, Hx Hiatal Hernia Comment Only: Other GI Disorders - hx mononucleosis History: Reports: Other Problems/Disorders - FREQ BLADDER INFECTION Denies: Hx Renal Disease Musculoskeletal History: Reports: Hx Arthritis - BILATERAL KNEE, SHOULDERS, BACK , MOST JOINTS, Hx Back Problems Denies: Other Musculoskeletal History Sensory History: Reports: Hx Contacts or Glasses - glasses Denies: Hx Hearing Aid Opthamlomology History: Reports: Hx Contacts or Glasses - glasses Neurological History: Reports: Hx Migraine Denies: Other Neuro Impairments/Disorders Psychiatric History: Denies: Hx Panic Disorder - Cancer History Hx Chemotherapy: No - Surgical History Surgery Procedure, Year, and Place: x4. hysterectomy;. foot right;. hand rt;. bilat total knee;. . wrist ganglion;x3. d/c. lf thumb. 5 radio ablations to back Hx Anesthesia Reactions: No Infectious Disease History: No Infectious Disease History: Reports: Hx Hepatitis - STATES SHE WAS JAUNDICE, History Other Infectious Disease - PRESENTLY IMPETIGO ON RIGHT SIDE OF NOSE Denies: Traveled Outside the [place] in Last 30 Days - Family History Known Family History: Positive: Non-Contributory - Social History Occupation: Works From/At Home Lives: With Family Alcohol Use: Rare Alcohol Amount: holidays Substance Use Type: Reports: None Smoking Status (MU): Never Smoked Tobacco Review of Systems Constitutional: Negative Negative: Fever, Chills Positive: Other - incision to posterior left leg Negative: Weakness, Paresthesia, Numbness All Other Systems Reviewed And Are Negative: Yes Physical Exam Triage Information Reviewed: Yes Vital Signs On Initial Exam: Initial Vitals Temp Pulse Resp BP Pulse Ox 97.5 F 81 16 148/63 99 12/14/18 08:48 12/14/18 08:48 12/14/18 08:48 12/14/18 08:48 12/14/18 08:48 Vital Signs Reviewed: Yes Appearance: Positive: Well-Appearing - Pt. sitting on bed in NAD. Skin: Positive: Warm, Dry Head/Face: Positive: Normal Head/Face Inspection Eyes: Positive: Normal, EOMI Neck: Positive: Supple Musculoskeletal: Positive: Other - Green cast to left lower leg. Horizontal defect across the front. Cast removed with cast cutter. Healing incision to posterior left lower leg. No erythema, edema or drainage. Compartments are soft. No calf tenderness. Neurological: Positive: Normal, CN Intact II-III Psychiatric: Positive: Affect/Mood Appropriate Procedures - Splinting Left Lower Extremity Hand-Made Type: orthoglass Pre-Proc Neuro Vasc Exam: normal Post-Proc Neuro Vasc Exam: normal Diagnostics - Vital Signs Vital Signs Temp Pulse Resp BP Pulse Ox 12/14/18 08:48 97.5 F 81 16 148/63 99 - Laboratory Lab Statement: Any lab studies that have been ordered have been reviewed, and results considered in the medical decision making process. Lower Extremity Course/Dx - Course Course Of Treatment: Pt. presenting for cast removal and replacement. No signs of infection. Cast removed with cast cutter and posterior splint applied. Pt. to f.u with ortho Sunday as scheduled. Continue ortho. instructions. - Diagnoses Provider Diagnoses: History of Achilles tendon repair Discharge - Sign-Out/Discharge Documenting (check all that apply): Patient Departure Patient Received Moderate/Deep Sedation with Procedure: No - Discharge Plan Condition: Good Disposition: HOME Patient Education Materials: Tendon Rupture (ED) Referrals: Lora Robin MD [Medical Doctor] - Shay Mohan MD [Primary Care Provider] - Additional Instructions: Follow up with ortho as scheduled - Billing Disposition and Condition Condition: GOOD Disposition: Home
[2018-12-14 09:45] VITALS: BP 105/55
== END 2018-12-14 09:44 | disposition home or self-care (01) ==
LOC: ED 08:47
DX: Z47.89 Encounter for other orthopedic aftercare (principal); E03.9 Hypothyroidism, unspecified; D64.9 Anemia, unspecified; J45.909 Unspecified asthma, uncomplicated; K21.9 Gastro-esophageal reflux disease without esophagitis; G47.30 Sleep apnea, unspecified
CPT/HCPCS: 99281